=== PATIENT | female | born 1965 | race Caucasian/White ===

== ENCOUNTER 2018-08-02 10:52 | Outpatient (CLI) | payer MEDICARE, MEDICAID, SELFPAY ==
[2018-08-04 16:13] LABS: Lamotrigine 5.8 mcg/mL (2.5 - 15.0)
== END 2018-08-02 11:12 ==
PROVIDERS: Visit Provider Psychiatry & Neurology Neurology
DX: R56.9 Unspecified convulsions (principal); Z51.81 Encounter for therapeutic drug level monitoring; Z79.899 Other long term (current) drug therapy
CPT/HCPCS: 36415; 80175

== ENCOUNTER 2018-08-09 09:17 | Outpatient (REF) | payer MEDICARE, MEDICAID, SELFPAY ==
[2018-08-09 12:57] LABS: HCT 41.8 % (36.0-46.0); HGB 13.5 g/dL (12.0-15.5); Mean Corp. HGB Concentration 32.3 g/dL (32.0-36.0); Mean Corpuscular Hemoglobin 30.9 pg (27.0-33.0); Mean Corpuscular Volume 95.7 fL (80-95); Mean Platelet Volume 10.9 fL (8.0-11.0); Platelet Count 256 x1000/uL (130-400); RBC 4.37 m/cumm (4.00-5.20); RBC Distribution Width 12.7 % (11.7-14.6); White Blood Cell Count 4.92 k/cumm (4.4-10.8)
[2018-08-09 14:04] LABS: ALT 38 U/L (12-78); AST 23 U/L (15-37); Albumin 3.9 g/dL (3.4-5.0); Alkaline Phosphatase 107 U/L (46-116); Anion Gap 10.6 mmol/L (3-11); BUN 12 mg/dL (7-18); Bilirubin, Total 0.3 mg/dL (0.2-1.0); CO2 25.4 mmol/L (21.0-32.0); CREATININE 0.83 mg/dL (0.55-1.02); Chloride 106 mmol/L (98-107); Cholesterol 221 mg/dL (50-200); Glucose 54 mg/dL (70-100); HDL Cholesterol 67 mg/dL (40-60); LDL CHOLESTEROL 134 mg/dL (<100); Potassium 4.1 mmol/L (3.5-5.1); Sodium 142 mmol/L (136-145); Total Protein 7.3 g/dL (6.4-8.2); Triglyceride 72 mg/dL (30-150)
== END 2018-08-09 09:37 ==
LOC: NCHCN 09:17
PROVIDERS: PCP Family Medicine; Visit Provider Family Medicine
DX: G80.9 Cerebral palsy, unspecified (principal); R26.89 Other abnormalities of gait and mobility; I62.00 Nontraumatic subdural hemorrhage, unspecified; Z79.899 Other long term (current) drug therapy; Z13.6 Encounter for screening for cardiovascular disorders
CPT/HCPCS: 80053; 80061; 83721; 85027

== ENCOUNTER 2018-08-16 13:25 | Outpatient (REF) | payer MEDICARE, MEDICAID, SELFPAY ==
--- NOTE | 2018-08-17 11:00 | PAPFT_PTH ---
PATIENT: Blanche Sherman LOC: [facility] U#:[id number] AGE/SX: 52/F ROOM: RE08/16/[address]: Xiomara Walsh : 1965 BED: DIS: 08/16/2018 SPEC #: [id number] RECD: 08/17/18 12:46 STATUS: KRAIG REMario Alberto #: [id number] SHANNAN: 08/17/18 11:[address]: Xiomara Walsh DEPT: [facility] Cytology RECD BY: Marilin Hickey Tissues: 1 - CX/ENDOCX FOR PAP SMEARS Procedures: PAP THIN PREP/UVM Screening HPV DNA PROBE Comments: [id number]
== END 2018-08-16 13:45 ==
LOC: NCHCN 13:25
PROVIDERS: PCP Family Medicine; Visit Provider Family Medicine
DX: Z12.4 Encounter for screening for malignant neoplasm of cervix (principal); Z11.51 Encounter for screening for human papillomavirus (HPV)
CPT/HCPCS: 88142; 87624

== ENCOUNTER 2018-09-24 10:18 | Emergency (ER) | payer MEDICARE, MEDICAID, SELFPAY ==
--- NOTE | 2018-09-24 11:04 | DI.RAD_ITS ---
SYMPTOM/DIAGNOSIS: LATERAL FOOT PAIN AFTER FAL RIGHT FOOT: Four views. There is a nondisplaced fracture involving the proximal metaphysis of the right fifth metatarsal. The fracture does not appear to be intra- articular. There is adjacent soft tissue swelling. No other fracture or dislocation is identified. No radiopaque foreign bodies are seen in the soft tissues. IMPRESSION: Nondisplaced fracture involving the right fifth metatarsal as described.
[2018-09-24] MEDS: Acetaminophen 325 MG TAB 650 MG PO (11:24)
--- NOTE | 2018-09-24 13:04 | DI.VRAD_ITS ---
EXAM: XR Right Foot Complete EXAM DATE/TIME: 09/24/2018 11:05 AM CLINICAL HISTORY: 52 years old, female; Signs and symptoms; Other: Lateral foot pain after fall TECHNIQUE: Imaging protocol: XR Right foot. Views: 3 or more views. COMPARISON: No relevant prior studies available. FINDINGS: Bones/joints: There is a nondisplaced, extra-articular transverse fracture through the base of the fifth metatarsal in alignment.The remaining skeletal structures show no evidence of acute fracture or other acute process. The joint spaces and articular surfaces are intact. Soft tissues: There is lateral soft tissue swelling. IMPRESSION: Nondisplaced fracture through the base of the fifth metatarsal. Dictated and Authenticated by: Kyra Ba MD. Ordering:FLORIAN Quan MD
--- NOTE | 2018-09-24 13:38 | W.ED.GENAD ---
Discharge Plan Disposition Patient Disposition: HOME Condition: Stable Discharge Details Chief Complaint: Orthopedic Clinical Impression: Fracture of fifth metatarsal bone Primary Care Provider: Xiomara Walsh ED Provider: Kadeem Ling Home Meds and New Rx's Prescriptions: Continued clobazam [Onfi] 10 MG tablet 15 mg PO DAILY RF: 0 acetaminophen [Tylenol] 325 MG tablet 650 mg PO PRN RF: 0 ibuprofen 200 MG capsule 200 mg PO PRN RF: 0 citalopram [Celexa] 20 MG tablet 30 mg PO DAILY RF: 0 lamotrigine [Lamictal] 100 MG tablet 100 mg PO DIRECTED RF: 0 topiramate [Topamax] 50 MG tablet 150 mg PO BID RF: 0 prednisone 50 MG tablet 50 mg PO DAILY 5 Days RF: 0 albuterol sulfate [ProAir HFA] 200 PUFF/INH HFA aerosol inhaler 2 puff Inhalation Q4H PRN PRNQty: 1 RF: 0 Discharge Instructions Instructions: Foot Fracture in Adults (ED), RICE Therapy (ED) Additional Instructions: You should continue with minimal weightbearing your right lower extremity and use assistive devices as needed for ambulation. If you do not hear from orthopedic office tomorrow morning please call their office tomorrow afternoon for arrangement of follow-up appointment preferably next 3 to 5 days. Continue to use acetaminophen as needed for discomfort, keep extremity elevated, and you may apply ice. Referrals: Rachid Irving MD [ [facility] STAFF PHYSICIAN] - (Call the office for arrangement of follow-up appointment) Discharge Data Discharge Date/Time-TO BE ENTERED AT DEPARTURE: 09/24/18 14:30 Medical Decision Making Patient reports walking down a incline yesterday and falling with a twisting motion of her right foot. Patient denies any other injury or trauma. Patient denies any ankle pain but mostly states foot discomfort on the lateral aspect. Physical exam shows significant tenderness and ecchymosis to the lateral component of the foot with tenderness to the base of the fifth metatarsal. Ankle has no tenderness and with passive range of motion there is no crepitus or pain elicited. Lower leg is otherwise unremarkable. Concern for fifth metatarsal fracture. Patient prescribed acetaminophen pending results Review of radiological imaging and radiologist dictation shows a nondisplaced fracture through the base of the fifth metatarsal. Given this patient was placed in a short leg splint using posterior and stirrup Ortho-Glass and held in place by Raji wrap. Care management was able to come down and assist given patient's gait instability at baseline with possible home health assistance and/or walker training. Patient's aunt who is also a caregiver states that she does already have a walker at home. Patient was not able to tolerate nonweightbearing. Called and spoke with orthopedist datastage consultant, Dr. Irving. He stated given patient's cerebral palsy and hemiparesis that walking boot would be appropriate and that patient could follow-up in their office. After discussion of diagnosis and plan of care patient and caregiver have no further needs, questions, or concerns and states clear understanding to return to the emergency department for any worsening symptoms. HPI General Mode of arrival: ambulatory. Date/Time Provider Initiated Documentation: 09/24/18 10:41. Information obtained by: patient, family and RN notes reviewed. History of Present Illness 52 year old F presents to the emergency department with the chief complaint of Right foot pain, described as moderate, with intensity rated at 8. Quality is described as sharp, and is localized to the right and lower extremity. Patient started experiencing this day(s) (1) and it has been constant. Patient notes no other symptoms.. Patient did receive the following treatments prior to arrival, none Related Data Home Medications Medication Instructions Recorded Confirmed acetaminophen [Tylenol] 650 mg PO PRN 01/01/14 09/24/18 citalopram [Celexa] 30 mg PO DAILY 01/01/14 09/24/18 ibuprofen 200 mg PO PRN 01/01/14 09/24/18 lamotrigine [Lamictal] 100 mg PO DIRECTED 01/01/14 09/24/18 topiramate [Topamax] 150 mg PO BID 01/01/14 09/24/18 clobazam [Onfi] 15 mg PO DAILY tab-cap 12/23/14 09/24/18 albuterol sulfate [ProAir HFA] 2 puff INHALATION Q4H PRN PRN #1 09/29/17 09/24/18 inh prednisone 50 mg PO DAILY 5 Days tablet 09/29/17 Previous Rx's Medication Instructions Recorded albuterol sulfate [ProAir HFA] 2 puff INHALATION Q4H PRN PRN #1 09/29/17 inh prednisone 50 mg PO DAILY 5 Days tablet 09/29/17 Allergies Allergy/AdvReac Type Severity Reaction Status Date / Time No Known Allergies Allergy Unverified 09/24/18 10:47 General Stated Complaint: Orthopedic SANTOS: 4 Review of Systems Cardiovascular Denies syncope Musculoskeletal Reports as per HPI, Denies numbness and Denies tingling Integumentary/Breasts Denies rash, Denies sores and Denies wounds Neurologic Denies syncope, Denies numbness and Denies tingling PFSH Medical History CP (cerebral palsy) Depression Hemiparesis Surgical History Ligation of fallopian tube VNS placement Social History Smoking/Tobacco Use Status: Former Tobacco Use Alcohol Intake: never Drug use: Never Do you feel safe at home: Yes Do you feel safe in your relationship?: Yes Exam Const General: cooperative and no acute distress Orientation: alert, awake and oriented x3 Resp Effort & Inspection: normal respiratory effort and able to speak in complete sentences Cardio Rate: regular rate Rhythm: regular rhythm Extrem Right lower extremity: ankle Details: normal to inspection and normal ROM; no tenderness, no ecchymosis and no crepitus and foot Details: tenderness Location: of the base of the 5th metatarsal, toes with normal ROM, ecchymosis (lateral foot), vascular exam Details: dorsalis pedis pulse present, posterior tibial pulse present and normal capillary refill and tendon exam Details: active flexion normal and active extension normal; no edema, no abrasion and no laceration Course Respiratory Effort Non-Labored 09/24/18 10:42 Pain Level 8 09/24/18 11:24
--- NOTE | 2018-09-24 13:42 | ED.GENADUL_ITS ---
Discharge Plan Disposition Patient Disposition: HOME Condition: Stable Discharge Details Chief Complaint: Orthopedic Clinical Impression: Fracture of fifth metatarsal bone Primary Care Provider: Xiomara Walsh ED Provider: Kadeem Ling Home Meds and New Rx's Prescriptions: Continued clobazam [Onfi] 10 MG tablet 15 mg PO DAILY RF: 0 acetaminophen [Tylenol] 325 MG tablet 650 mg PO PRN RF: 0 ibuprofen 200 MG capsule 200 mg PO PRN RF: 0 citalopram [Celexa] 20 MG tablet 30 mg PO DAILY RF: 0 lamotrigine [Lamictal] 100 MG tablet 100 mg PO DIRECTED RF: 0 topiramate [Topamax] 50 MG tablet 150 mg PO BID RF: 0 prednisone 50 MG tablet 50 mg PO DAILY 5 Days RF: 0 albuterol sulfate [ProAir HFA] 200 PUFF/INH HFA aerosol inhaler 2 puff Inhalation Q4H PRN PRNQty: 1 RF: 0 Discharge Instructions Instructions: Foot Fracture in Adults (ED), RICE Therapy (ED) Additional Instructions: You should continue with minimal weightbearing your right lower extremity and use assistive devices as needed for ambulation. If you do not hear from orthopedic office tomorrow morning please call their office tomorrow afternoon for arrangement of follow-up appointment preferably next 3 to 5 days. Continue to use acetaminophen as needed for discomfort, keep extremity elevated, and you may apply ice. Referrals: Rachid Irving MD [ [facility] STAFF PHYSICIAN] - (Call the office for arrangement of follow-up appointment) Discharge Data Discharge Date/Time-TO BE ENTERED AT DEPARTURE: 09/24/18 14:30 Medical Decision Making Patient reports walking down a incline yesterday and falling with a twisting motion of her right foot. Patient denies any other injury or trauma. Patient denies any ankle pain but mostly states foot discomfort on the lateral aspect. Physical exam shows significant tenderness and ecchymosis to the lateral component of the foot with tenderness to the base of the fifth metatarsal. Ankle has no tenderness and with passive range of motion there is no crepitus or pain elicited. Lower leg is otherwise unremarkable. Concern for fifth metatarsal fracture. Patient prescribed acetaminophen pending results Review of radiological imaging and radiologist dictation shows a nondisplaced fracture through the base of the fifth metatarsal. Given this patient was placed in a short leg splint using posterior and stirrup Ortho-Glass and held in place by Raji wrap. Care management was able to come down and assist given patient's gait instability at baseline with possible home health assistance and/or walker training. Patient's aunt who is also a caregiver states that she does already have a walker at home. Patient was not able to tolerate nonweightbearing. Called and spoke with orthopedist paper conservator, Dr. Irving. He stated given patient's cerebral palsy and hemiparesis that walking boot would be appropriate and that patient could follow-up in their office. After discussion of diagnosis and plan of care patient and caregiver have no further needs, questions, or concerns and states clear understanding to return to the emergency department for any worsening symptoms. HPI General Mode of arrival: ambulatory . Date/Time Provider Initiated Documentation: 09/24/18 10:41 . Information obtained by: patient, family and RN notes reviewed . History of Present Illness 52 year old F presents to the emergency department with the chief complaint of Right foot pain, described as moderate, with intensity rated at 8. Quality is described as sharp, and is localized to the right and lower extremity. Patient started experiencing this day(s) (1) and it has been constant. Patient notes no other symptoms.. Patient did receive the following treatments prior to arrival, none Related Data Home Medications Medication Instructions Recorded Confirmed acetaminophen [Tylenol] 650 mg PO PRN 01/01/14 09/24/18 citalopram [Celexa] 30 mg PO DAILY 01/01/14 09/24/18 ibuprofen 200 mg PO PRN 01/01/14 09/24/18 lamotrigine [Lamictal] 100 mg PO DIRECTED 01/01/14 09/24/18 topiramate [Topamax] 150 mg PO BID 01/01/14 09/24/18 clobazam [Onfi] 15 mg PO DAILY tab-cap 12/23/14 09/24/18 albuterol sulfate [ProAir HFA] 2 puff INHALATION Q4H PRN PRN #1 09/29/17 09/24/18 inh prednisone 50 mg PO DAILY 5 Days tablet 09/29/17 Previous Rx's Medication Instructions Recorded albuterol sulfate [ProAir HFA] 2 puff INHALATION Q4H PRN PRN #1 09/29/17 inh prednisone 50 mg PO DAILY 5 Days tablet 09/29/17 Allergies Allergy/AdvReac Type Severity Reaction Status Date / Time No Known Allergies Allergy Unverified 09/24/18 10:47 General Stated Complaint: Orthopedic SANTOS: 4 Review of Systems Cardiovascular Denies syncope Musculoskeletal Reports as per HPI, Denies numbness and Denies tingling Integumentary/Breasts Denies rash, Denies sores and Denies wounds Neurologic Denies syncope, Denies numbness and Denies tingling PFSH Medical History CP (cerebral palsy) Depression Hemiparesis Surgical History Ligation of fallopian tube VNS placement Social History Smoking/Tobacco Use Status: Former Tobacco Use Alcohol Intake: never Drug use: Never Do you feel safe at home: Yes Do you feel safe in your relationship?: Yes Exam Const General: cooperative and no acute distress Orientation: alert, awake and oriented x3 Resp Effort & Inspection: normal respiratory effort and able to speak in complete sentences Cardio Rate: regular rate Rhythm: regular rhythm Extrem Right lower extremity: ankle Details: normal to inspection and normal ROM; no tenderness, no ecchymosis and no crepitus and foot Details: tenderness Location: of the base of the 5th metatarsal, toes with normal ROM, ecchymosis (lateral foot), vascular exam Details: dorsalis pedis pulse present, posterior tibial pulse present and normal capillary refill and tendon exam Details: active flexion normal and active extension normal; no edema, no abrasion and no laceration Course Respiratory Effort Non-Labored 09/24/18 10:42 Pain Level 8 09/24/18 11:24
== END 2018-09-24 14:30 | disposition home or self-care (01) ==
PROVIDERS: Emergency Provider Nurse Practitioner Family; PCP Family Medicine
DX: S92.351A Displaced fracture of fifth metatarsal bone, right foot, initial encounter for closed fracture (principal); W01.0XXA Fall on same level from slipping, tripping and stumbling without subsequent striking against object, initial encounter
CPT/HCPCS: 28470; 73630; L4361

== ENCOUNTER → 2018-10-02 09:13 | Outpatient (BNVA) | payer MEDICARE, MEDICAID, SELFPAY | PROVIDERS: PCP Family Medicine; Referring Provider Family Medicine; Visit Provider Orthopaedic Surgery | DX: S92.353A Displaced fracture of fifth metatarsal bone, unspecified foot, initial encounter for closed fracture (principal); G80.9 Cerebral palsy, unspecified; X50.0XXA Overexertion from strenuous movement or load, initial encounter | CPT/HCPCS: 99201; 99213 ==

== ENCOUNTER 2018-10-30 11:27 | Outpatient (CLI) | payer MEDICARE, MEDICAID, SELFPAY ==
--- NOTE | 2018-10-30 09:21 | DI.RAD_ITS ---
SYMPTOM/DIAGNOSIS: F/U RIGHT FOOT: Comparison is made with 24 Sep 2018. The 5th metatarsal fracture shows slightly increased displacement when compared with the previous exam and there is no visible bony bridging. The bones appear mildly osteoporotic from disuse. Chronic foot deformity is also present.
== END 2018-10-30 11:47 ==
PROVIDERS: PCP Family Medicine; Referring Provider Family Medicine; Visit Provider Orthopaedic Surgery
DX: S92.351A Displaced fracture of fifth metatarsal bone, right foot, initial encounter for closed fracture (principal); X58.XXXA Exposure to other specified factors, initial encounter
CPT/HCPCS: 99213; 73630

== ENCOUNTER 2018-11-27 10:52 | Outpatient (CLI) | payer MEDICARE, MEDICAID, SELFPAY ==
--- NOTE | 2018-11-27 09:30 | DI.RAD_ITS ---
SYMPTOM/DIAGNOSIS: FRACTURE 5TH METATARSAL BONE RIGHT FOOT: Three views. Comparison 10/30/18 There has been no further increase in healing of the fracture of the right 5th metatarsal. The fracture line is still well visualized laterally, No new fractures or dislocations are seen. Chronic stable deformity of the right foot is noted.
== END 2018-11-27 11:12 ==
PROVIDERS: PCP Family Medicine; Referring Provider Family Medicine; Visit Provider Orthopaedic Surgery
DX: S92.351D Displaced fracture of fifth metatarsal bone, right foot, subsequent encounter for fracture with routine healing (principal); X50.9XXD Other and unspecified overexertion or strenuous movements or postures, subsequent encounter
CPT/HCPCS: 99213; 73630

== ENCOUNTER 2019-03-30 19:53 | Emergency (ER) | payer MEDICARE, MEDICAID, SELFPAY ==
[2019-03-30 19:57] VITALS: BP 118/81; PULSE 93; RESP 16; TEMP 36.7; O2SAT 100
--- NOTE | 2019-03-30 20:17 | ED.GENADUL_ITS ---
Discharge Plan Disposition Patient Disposition: HOME Condition: Improving Discharge Details Chief Complaint: Trauma Clinical Impression: Multiple contusions Primary Care Provider: Xiomara Walsh ED Provider: Rachid Allen Home Meds and New Rx's Prescriptions: Continued cholecalciferol (vitamin D3) 1,000 unit capsule 1,000 unit PO BID RF: 0 clobazam [Onfi] 10 MG tablet 15 mg PO DAILY RF: 0 acetaminophen [Tylenol] 325 MG tablet 650 mg PO PRN RF: 0 ibuprofen 200 MG capsule 200 mg PO PRN RF: 0 citalopram [Celexa] 20 MG tablet 30 mg PO DAILY RF: 0 topiramate [Topamax] 50 MG tablet 150 mg PO BID RF: 0 lamotrigine [Lamictal] 100 mg tablet 150 mg PO BID RF: 0 albuterol sulfate [ProAir HFA] 200 PUFF/INH HFA aerosol inhaler 2 puff Inhalation Q4H PRN PRNQty: 1 RF: 0 Discharge Instructions Instructions: Contusion in Adults (ED) Additional Instructions: You will likely have increased muscular soreness tomorrow and may develop some mild bruising. Tylenol and/or ibuprofen as needed for pain. Continue your regular medications. Return for any acute concern. Stand Alone Forms: Work Release Medical Decision Making 53-year-old female with cerebral palsy, pre-standing partial right hemiparesis who is caring a box this afternoon when her feet were tangled and she fell on her left side. No loss of consciousness. Denies head/neck/abdominal pain. She has mild left-sided rib and back pain is worse with movement. Mild left foot pain. Had transient left elbow pain that is now improved. Vital signs are unremarkable. Patient given ibuprofen and referred for x-ray of ribs, pelvis, left foot. Radiographs: Left foot no acute finding; chest x-ray with left ribs note of neuro stimulatory device, intact leads, no evidence of rib fracture or acute finding; pelvis XRay no acute fracture. Patient stable and improved, will be discharged with caregivers. HPI General Mode of arrival: ambulatory . Date/Time Provider Initiated Documentation: 03/30/19 19:55 . Limitations to Documentation: no limitations . Information obtained by: patient . History of Present Illness 53 year old F presents to the emergency department with the chief complaint of L pain after ground level fall, described as mild, Quality is described as dull, and is localized to the chest, pelvis, left and lower extremity. Patient reports no radiation. Patient started experiencing this minute(s) and it has been constant. No relieving factors improve symptom(s), No exacerbating factors reported . Patient notes denies headaches, seizure and syncope. Patient did receive the following treatments prior to arrival, other (Tylenol) Related Data Home Medications Medication Instructions Recorded Confirmed acetaminophen [Tylenol] 650 mg PO PRN 01/01/14 03/30/19 citalopram [Celexa] 30 mg PO DAILY 01/01/14 03/30/19 ibuprofen 200 mg PO PRN 01/01/14 03/30/19 topiramate [Topamax] 150 mg PO BID 01/01/14 03/30/19 clobazam [Onfi] 15 mg PO DAILY tab-cap 12/23/14 03/30/19 albuterol sulfate [ProAir HFA] 2 puff INHALATION Q4H PRN PRN #1 09/29/17 03/30/19 inh cholecalciferol (vitamin D3) 1,000 1,000 unit PO BID cap 10/02/18 03/30/19 unit capsule lamotrigine 100 mg tablet 150 mg PO BID tab 10/02/18 03/30/19 Previous Rx's Medication Instructions Recorded albuterol sulfate [ProAir HFA] 2 puff INHALATION Q4H PRN PRN #1 09/29/17 inh Allergies Allergy/AdvReac Type Severity Reaction Status Date / Time No Known Allergies Allergy Unverified 03/30/19 20:05 General Stated Complaint: Trauma SANTOS: 4 Review of Systems Narrative: No loss of consciousness. Able to ambulate. 6 systems reviewed and otherwise negative [facility] Medical History CP (cerebral palsy) Depression Hemiparesis Surgical History Ligation of fallopian tube VNS placement Social History Smoking/Tobacco Use Status: Former Tobacco Use Alcohol Intake: never Drug use: Never Substance use type: does not use Do you feel safe at home: Yes Do you feel safe in your relationship?: Yes Exam Narrative Exam Narrative: GEN: awake, alert, oriented 3. Pleasant, well groomed, interactive. HEAD: Normocephalic, atraumatic ENT: Mucous membranes moist, oropharynx unremarkable, External ear exam unremarkable EYES: PERRL, EOMI NECK: Full ROM, no GUERITA, no menigismus CHEST/RESP: No significant tenderness appreciated., clear to auscultation bilateral, no wheeze/rhonchi/rales CARDIOVASCULAR: RRR, no murmur, rub darius. 2+ Rad pulse bilateral ABDOMEN: Soft, nontender, no mass. +Bowel sounds EXT: Full ROM, no edema, no rash. Minimal tenderness left foot. Neuro: Grossly normal neurologic exam, conversant, interactive. Right-sided muscle wasting and mild weakness but able to move all 4 extremities against gravity Psych: Speech fluent, thoughts congruent, affect normal Course Vital Signs Vital signs: Vital Signs Temperature 36.7 C 03/30/19 19:57 Pulse 93 H 03/30/19 19:57 Respiratory Rate 16 03/30/19 19:57 Blood Pressure 118/81 03/30/19 19:57 Pulse Oximetry 100 03/30/19 19:57 Temperature 36.7 C 03/30/19 19:57 Temperature Source Skin 03/30/19 19:57 Pulse 93 H 03/30/19 19:57 Respiratory Rate 16 03/30/19 19:57 Respiratory Effort 03/30/19 20:07 Blood Pressure 118/81 03/30/19 19:57 Pulse Oximetry 100 03/30/19 19:57 Pain Level 5 03/30/19 19:57
--- NOTE | 2019-03-30 20:26 | DI.RAD_ITS ---
EXAM: XR FOOT LT COMPLETE INDICATION: pain after fall. COMPARISON: XR foot RT complete from 11/27/2018 TECHNIQUE: 2D digital imaging was performed. FINDINGS: No acute fracture or dislocation is present. The soft tissues are unremarkable. There are hammertoe deformities of the 2nd through 5th toes. IMPRESSION: No acute abnormality.
--- NOTE | 2019-03-30 20:32 | DI.RAD_ITS ---
EXAM: XR RIBS LT W PA LAT CHEST INDICATION: L pain after fall. COMPARISON: CHEST 2 VIEWS PA,LAT from 09/29/2017 TECHNIQUE: 2D digital imaging was performed. FINDINGS: The heart size and pulmonary vasculature are within normal limits. The lungs are clear. No effusion s or pneumothoraces are present. The nerve stimulator device is unchanged. No rib fracture is ident ified. IMPRESSION: No acute abnormality.
--- NOTE | 2019-03-30 20:39 | DI.RAD_ITS ---
EXAM: XR PELVIS AP INDICATION: L pain after fall. COMPARISON: No exams were available for comparison TECHNIQUE: 2D digital imaging was performed. FINDINGS: No acute fracture or dislocation is present. The soft tissues are unremarkable. IMPRESSION: No acute abnormality.
[2019-03-30] MEDS: Ibuprofen 800 MG TAB PO (20:48)
--- NOTE | 2019-03-30 20:57 | DI.VRAD_ITS ---
PROCEDURE INFORMATION: Exam: XR Left Foot Complete Exam date and time: 03/30/2019 8:28 PM Age: 53 years old Clinical history: Injury or trauma; Fall; Initial encounter; Sprain or strain; Foot; Left TECHNIQUE: Imaging protocol: XR Left foot. Views: 3 or more views. COMPARISON: CR LEFT ANKLE COMPLETE 12/18/2016 10:27 PM FINDINGS: Bones/joints: No fracture. Hammertoe deformities second through fifth digits. Soft tissues: Normal. IMPRESSION: No acute findings. Dictated and Authenticated by: Frankie Rainey MD. Ordering:SHANA Rashid MD
--- NOTE | 2019-03-30 21:06 | DI.VRAD_ITS ---
PROCEDURE INFORMATION: Exam: XR Pelvis Exam date and time: 03/30/2019 8:44 PM Age: 53 years old Clinical history: Pelvic pain TECHNIQUE: Imaging protocol: XR pelvis. Views: 1 or 2 view. COMPARISON: US PELVIS ULTRASOUND *(P) 12/31/2013 5:44 PM FINDINGS: Bones/joints: Unremarkable. No acute fracture. Soft tissues: Unremarkable. IMPRESSION: No acute findings. Dictated and Authenticated by: Frankie Rainey MD. Ordering:SHANA Rashid MD
--- NOTE | 2019-03-30 21:10 | DI.VRAD_ITS ---
PROCEDURE INFORMATION: Exam: XR Left Ribs Exam date and time: 03/30/2019 8:45 PM Age: 53 years old Clinical history: Injury or trauma; Fall; Initial encounter; Sprain or strain; Rib area, left side TECHNIQUE: Imaging protocol: XR Left ribs. Views: 2 views. COMPARISON: No relevant prior studies available. FINDINGS: Tubes, catheters and devices: Neurostimulatory device with generator in upper left chest and lead extending cephalad from it into neck. Bones/joints: Normal. Soft tissues: Normal. IMPRESSION: No left rib fracture. PROCEDURE INFORMATION: Exam: XR Chest, 2 Views Exam date and time: 03/30/2019 8:45 PM Age: 53 years old Clinical history: Injury or trauma; Fall; Initial encounter; Sprain or strain; Rib area, left side TECHNIQUE: Imaging protocol: XR of the chest Views: 2 views. COMPARISON: No relevant prior studies available. FINDINGS: Lungs: Unremarkable. No consolidation. Pleural space: Unremarkable. No pleural effusion. No pneumothorax. Heart/Mediastinum: Unremarkable. No cardiomegaly. Bones/joints: Unremarkable. IMPRESSION: No acute findings. Dictated and Authenticated by: Frankie Rainey MD. Ordering:SHANA Rashid MD
[2019-03-30 21:30] VITALS: BP 121/74; PULSE 76; RESP 16; O2SAT 97
== END 2019-03-30 21:30 | disposition home or self-care (01) ==
PROVIDERS: Emergency Provider Emergency Medicine; PCP Family Medicine
DX: M25.522 Pain in left elbow (principal); M79.672 Pain in left foot; M54.9 Dorsalgia, unspecified; R07.81 Pleurodynia; W10.8XXA Fall (on) (from) other stairs and steps, initial encounter
CPT/HCPCS: 99284; 71046; 71100; 72170; 73630; 99282

== ENCOUNTER → 2019-05-29 10:13 | Outpatient (BNVA) | payer MEDICARE, MEDICAID, SELFPAY | PROVIDERS: PCP Family Medicine; Referring Provider Family Medicine; Visit Provider Psychiatry & Neurology Neurology | DX: G40.119 Localization-related (focal) (partial) symptomatic epilepsy and epileptic syndromes with simple partial seizures, intractable, without status epilepticus (principal); G80.8 Other cerebral palsy; F81.9 Developmental disorder of scholastic skills, unspecified; Q04.6 Congenital cerebral cysts; Z45.42 Encounter for adjustment and management of neurostimulator | CPT/HCPCS: 95970; 99204; 99215 ==

== ENCOUNTER 2019-08-30 08:45 | Emergency (ER) | payer OTHER, MEDICARE, MEDICAID, SELFPAY ==
[2019-08-30 08:44] VITALS: BP 113/75; PULSE 82; RESP 21; TEMP 36.5; O2SAT 98
--- NOTE | 2019-08-30 08:52 | ED.GENADUL_ITS ---
Discharge Plan Disposition Patient Disposition: HOME Condition: Stable Discharge Details Chief Complaint: Orthopedic Clinical Impression: Fall, Contusion of rib on left side, Contusion of left hip Primary Care Provider: Xiomara Walsh ED Provider: Judy Palacio Home Meds and New Rx's Prescriptions: Continued cholecalciferol (vitamin D3) 1,000 unit capsule 1,000 unit PO BID RF: 0 clobazam [Onfi] 10 MG tablet 15 mg PO DAILY RF: 0 citalopram 40 mg tablet 40 mg PO DAILY RF: 0 acetaminophen [Tylenol] 325 MG tablet 650 mg PO PRN RF: 0 ibuprofen 200 MG capsule 200 mg PO PRN RF: 0 topiramate [Topamax] 50 MG tablet 150 mg PO DAILY RF: 0 lamotrigine 200 mg Tablet 200 mg PO DAILY RF: 0 lamotrigine 150 mg tablet 150 mg PO HS RF: 0 Discharge Instructions Instructions: Contusion in Adults (ED), Fall Prevention (ED), Rib Contusion (ED) Additional Instructions: Apply ice to the affected area several times daily for 20 minutes at a time. Alternate tylenol and motrin as needed and directed for pain. You can also try [id number] Lidoderm patches to help with pain. Follow-up with your primary care doctor in 1 week. Return to the emergency department with any worsening or new concerning symptoms. Discharge Data Discharge Physician: Judy Palacio Medical Decision Making [id number] -- 53-year-old female with a history of cerebral palsy, developmental delay, seizures presents with left rib, left abdomen/side, left hip and left lower back pain status post mechanical fall. She is acting at mental status baseline. She has tenderness to palpation left rib left upper and lower quadrant, left hip. No evidence of trauma. No focal deficits. Will give a dose of Tylenol and refer for CT imaging. 1155 --labs and imaging reviewed and unremarkable. Case discussed with patient social worker palliative care [place] who will take patient home. Patient was given Tylenol and Lidoderm patch with some relief. She was advised on the importance of ice and pain control. Usual and customary return precautions given prior to discharge. Medical Records Medical records reviewed: Yes I reviewed the patient's medical records. Imaging Data Radiologic Study: Radiologist's impression: CT HEAD CERVICAL SPINE WO CLINICAL HISTORY: s/p fall, r/o acute head inj/cervical fx TECHNIQUE: COMPARISON: HEAD WITHOUT CONTRAST from 09/29/2017 FINDINGS: Noncontrast cranial CT was performed. Prior left craniotomy noted, no evidence of acute calvarial fracture. Paranasal sinuses and mastoid air cells appear clear. Left encephalomalacia again noted, no change from 09/29/2017. No evidence of subdural hematoma at this time, previously noted subdural hematoma has resolved. No additional new findings. Scanning of the cervical spine was performed utilizing multi slice imaging. The tracheolaryngeal structures appear intact. There are mild degenerative changes of the cervical spine. There is no evidence of acute fracture or facet dislocation. No cervical mass or adenopathy seen. IMPRESSION: No evidence of acute intracranial injury. No evidence of acute cervical spine injury. CT CHEST/ABD/PEL W TECHNIQUE: CT examination of the chest, abdomen, and pelvis was performed with bolus infusion of 100 cc of Omnipaque 350. COMPARISON: No exams were available for comparison FINDINGS: Note is made of a subcutaneous stimulator of the left upper thorax anteriorly. There is no evidence of a thoracic vascular injury. The lungs are clear. No pneumothorax or pleural effusion. No mediastinal hematoma. No adenopathy in the chest. Tracheobronchial tree appears intact. The liver, spleen, and pancreas appear normal. Gallbladder and bile ducts are normal. Adrenals and kidneys are unremarkable. No evidence of urinary tract injury or obstruction. No abdominal or pelvic vascular injury seen. No abdominal or pelvic adenopathy. No significant abdominal wall hernia or hematoma. No evidence of bowel injury. No bony injury seen on scanning of the chest, abdomen, and pelvis. IMPRESSION: No evidence of acute injury of the chest, abdomen, or pelvis. Lab Data Lab results reviewed: Yes I reviewed the patient's lab results. Labs: Laboratory Tests Range/Units 08/30/19 08/30/19 09:58 09:58 WBC (4.4-10.8) k/cumm 6.56 RBC (4.00-5.20) m/cumm 4.38 Hgb (12.0-15.5) g/dL 13.3 Hct (36.0-46.0) % 40.8 MCV (80-95) fL 93.2 MCH (27.0-33.0) pg 30.4 MCHC (32.0-36.0) g/dL 32.6 RDW (11.7-14.6) % 12.6 Plt Count (130-400) x1000/uL 182 MPV (8.0-11.0) fL 10.8 Immature Gran % % 0.8 Neutrophils % 73.1 Lymphocytes % 18.8 Monocytes % 4.4 Eosinophils % 2.7 Basophils % 0.2 Absolute Neutrophils (1.2-6.7) k/cumm 4.80 Absolute Lymphocytes (1.2-3.4) k/cumm 1.23 Absolute Monocytes (0.11-0.7) k/cumm 0.29 Absolute Eosinophils (0.0-0.7) k/cumm 0.18 Absolute Basophils (0.0-0.2) k/cumm 0.01 Sodium (136-145) mmol/L 140 Potassium (3.5-5.1) mmol/L 4.1 Chloride (98-107) mmol/L 105 Carbon Dioxide (21.0-32.0) mmol/L 27.5 Anion Gap (3-11) mmol/L 7.5 BUN (7-18) mg/dL 10 Creatinine (0.55-1.02) mg/dL 0.86 Estimated GFR/1.73 m2 (mL/min/1.73m2) >= 60.00 Glucose (74-106) mg/dL 93 Calcium (8.5-10.1) mg/dL 8.8 Total Bilirubin (0.2-1.0) mg/dL 0.3 AST (15-37) U/L 23 ALT (14-59) U/L 30 Alkaline Phosphatase (46-116) U/L 96 Total Protein (6.4-8.2) g/dL 7.2 Albumin (3.4-5.0) g/dL 3.7 Lipase (73-393) U/L 261 HPI General Mode of arrival: EMS . Date/Time Provider Initiated Documentation: 08/30/19 09:10 . Limitations to Documentation: no limitations . Information obtained by: patient . HPI Narrative: Patient is a 53-year-old female with a history of cerebral palsy, seizures, cognitive developmental delay who presents status post fall. Patient states he was walking when she tripped over a mop and hit her left side, hip and lower back on the floor. She is also complaining of pain in the left side of the abdomen. She states she is unsure of head injury but she does not think she hit her head. She denies any LOC or vomiting. She states she does not usually use assistance with walking. She has not taken any medication for pain. Related Data Home Medications Medication Instructions Recorded Confirmed acetaminophen [Tylenol] 650 mg PO PRN 01/01/14 08/30/19 ibuprofen 200 mg PO PRN 01/01/14 08/30/19 topiramate [Topamax] 150 mg PO DAILY 01/01/14 08/30/19 clobazam [Onfi] 15 mg PO DAILY tab-cap 12/23/14 08/30/19 cholecalciferol (vitamin D3) 25 1,000 unit PO BID cap 10/02/18 08/30/19 mcg (1,000 unit) capsule citalopram 40 mg tablet 40 mg PO DAILY 04/17/19 08/30/19 lamotrigine 150 mg PO HS 08/30/19 08/30/19 lamotrigine 200 mg PO DAILY 08/30/19 08/30/19 Allergies Allergy/AdvReac Type Severity Reaction Status Date / Time meperidine [From Demerol] AdvReac Mild Unverified 08/30/19 09:25 General SANTOS: 4 Review of Systems All systems reviewed & are unremarkable except as noted in HPI and below Constitutional Constitutional: Reports as per HPI, Denies chills and Denies fever(s) Eyes Eyes: Denies blurry vision ENT Ears, Nose, Mouth, and Throat: Denies dizziness, Denies sore throat and Denies throat swelling Cardiovascular Cardiovascular: Denies chest pain and Denies dyspnea Respiratory Respiratory: Denies cough and Denies dyspnea Gastrointestinal Gastrointestinal: Reports abdominal pain, Denies diarrhea and Denies vomiting Genitourinary Genitourinary: Denies hematuria and Denies dysuria Musculoskeletal Musculoskeletal: Denies back pain, Denies numbness and Reports other (L rib and hip pain) Integumentary/Breasts Skin/Breast: Denies lesions and Denies rash Neurologic Neurologic: Denies dizziness, Denies localized weakness and Denies numbness Allergic/Immunologic Allergic/Immunologic: Denies throat swelling COUNTS INCLUDE 234 BEDS AT THE [facility] Social History Smoking/Tobacco Use Status: Former Tobacco Use Alcohol Intake: never Drug use: Never Substance use type: does not use Household members: family current occupation: Disabled Do you feel safe at home: Yes Do you feel safe in your relationship?: Yes Additional Social history: Lives with caregiver and Aunt Pretty Hagan. Guardian is Aparna Delgado. Exam Const General: cooperative, healthy appearing and no acute distress Orientation: alert, awake and oriented x3 HENMT Head: normal to inspection Ears: hearing grossly normal bilaterally, external ears normal and TM's normal bilaterally General nose exam: external nose normal Face and sinus: normal facial exam Mouth: oral mucosae normal Teeth and gingiva: dentition normal Throat: posterior oropharynx normal Eyes General: appearance normal, both eyes and all related structures Eyelids: eyelids normal Pupils: PERRL EOM: EOM intact bilaterally Neck Neck: normal visual inspection Lymphatic: no lymphadenopathy noted Chest Chest: normal inspection of the chest and tenderness Chest/axillae images: 1. Tenderness to palpation L lateral chest. No crepitus, ecchymoses, erythema, abrasions, or rash. Resp Effort & Inspection: normal respiratory effort and able to speak in complete sen tences Auscultation: clear to auscultation bilaterally Cardio Rate: regular rate Rhythm: regular rhythm GI Inspection: normal to inspection and no abdominal wall ecchymosis Palpation: soft, not firm, no guarding, no hepatosplenomegaly, no masses and tender in the LLQ and in the LUQ Auscultation: hypoactive bowel sounds Back/Spine/Pelvis Cervical Spine: No cervical spinal tenderness Thoracic/Lumbar Spine: thoracic and lumbar spine normal to inspection, No thoracic spinal tenderness and No lumbar spinal tenderness Other: Tenderness to palpation of left buttock with minimal ecchymosis, may be considered old. Skin General skin exam: no rashes or lesions noted Neuro General: patient alert and patient awake Cranial Nerves: CN's II-XI intact bilaterally Cognition: normal cognition Speech: abnormal speech slurred (chronic, due to cerebral palsy) Gait: normal gait Motor: muscle tone normal throughout and strength 5/5 throughout Sensory Exam: no sensory deficits noted Other: chronic R sided hemiparesis Extrem Left lower extremity: hip/thigh Details: tenderness Location: of the hip Location: laterally Other: R arm contracted, flexed at R elbow chronically Psych Appearance: grossly normal Mental Status: mental status grossly normal Speech and Movement: speech and movement normal Affect: normal affect Thought Process: normal
--- NOTE | 2019-08-30 09:00 | DI.CT_ITS ---
EXAM: CT HEAD CERVICAL SPINE WO CLINICAL HISTORY: s/p fall, r/o acute head inj/cervical fx TECHNIQUE: COMPARISON: HEAD WITHOUT CONTRAST from 09/29/2017 FINDINGS: Noncontrast cranial CT was performed. Prior left craniotomy noted, no evidence of acute calvarial fr acture. Paranasal sinuses and mastoid air cells appear clear. Left encephalomalacia again noted, no change from 09/29/2017. No evidence of subdural hematoma at th is time, previously noted subdural hematoma has resolved. No additional new findings. Scanning of the cervical spine was performed utilizing multi slice imaging. The tracheolaryngeal str uctures appear intact. There are mild degenerative changes of the cervical spine. There is no evide nce of acute fracture or facet dislocation. No cervical mass or adenopathy seen. IMPRESSION: No evidence of acute intracranial injury. No evidence of acute cervical spine injury.
--- NOTE | 2019-08-30 09:00 | DI.CT_ITS ---
EXAM: CT CHEST/ABD/PEL W TECHNIQUE: CT examination of the chest, abdomen, and pelvis was performed with bolus infusion of 100 cc of Omnipaque 350. COMPARISON: No exams were available for comparison FINDINGS: Note is made of a subcutaneous stimulator of the left upper thorax anteriorly. There is no evidence of a thoracic vascular injury. The lungs are clear. No pneumothorax or pleural e ffusion. No mediastinal hematoma. No adenopathy in the chest. Tracheobronchial tree appears intact. The liver, spleen, and pancreas appear normal. Gallbladder and bile ducts are normal. Adrenals and kidneys are unremarkable. No evidence of urinary tract injury or obstruction. No abdominal or pelvic vascular injury seen. No abdominal or pelvic adenopathy. No significant abdomi nal wall hernia or hematoma. No evidence of bowel injury. No bony injury seen on scanning of the chest, abdomen, and pelvis. IMPRESSION: No evidence of acute injury of the chest, abdomen, or pelvis. RADIATION DOSE DELIVERED: Total DLP DATA REPOSITORY: All CT scans at this facility are submitted to the National Radiology Data Registry (NRDR) Dose Index Registry (DIR) with the [employer] (A[employer]). RADIATION OPTIMIZATION: All CT scans at this facility use at least one of these dose optimization te chniques: automated exposure control; mA and/or kV adjustment per patient size (includes targeted exa ms where dose is matched to clinical indication); or iterative reconstruction.
[2019-08-30] MEDS: Acetaminophen 500 MG TAB 1000 MG PO ×2 (09:59→12:18)
[2019-08-30] MEDS: Normal Saline Flush 10 ML SYR IVP (10:00)
[2019-08-30] MEDS: Omnipaque 350 MG/ML 100 ML BTL IJ (10:20)
[2019-08-30] MEDS: Normal Saline - Diluent 50 ML VIAL IV (10:21)
[2019-08-30 10:26] LABS: Abs Immature Grans 0.05 k/cumm (0.0-0.09); Absolute Basophil Count 0.01 k/cumm (0.0-0.2); Absolute Eosinophil Count 0.18 k/cumm (0.0-0.7); Absolute Lymphocyte Count 1.23 k/cumm (1.2-3.4); Absolute Monocyte Count 0.29 k/cumm (0.11-0.7); Basophils % 0.2; Eosinophils % 2.7; HCT 40.8 % (36.0-46.0); HGB 13.3 g/dL (12.0-15.5); Immature Grans % 0.8 %; Lymphocytes % 18.8; Mean Corp. HGB Concentration 32.6 g/dL (32.0-36.0); Mean Corpuscular Hemoglobin 30.4 pg (27.0-33.0); Mean Corpuscular Volume 93.2 fL (80-95); Mean Platelet Volume 10.8 fL (8.0-11.0); Monocytes % 4.4; Neutrophils % 73.1; Platelet Count 182 x1000/uL (130-400); RBC 4.38 m/cumm (4.00-5.20); RBC Distribution Width 12.6 % (11.7-14.6); White Blood Cell Count 6.56 k/cumm (4.4-10.8)
[2019-08-30 10:29] LABS: ALT 30 U/L (14-59); AST 23 U/L (15-37); Albumin 3.7 g/dL (3.4-5.0); Alkaline Phosphatase 96 U/L (46-116); Anion Gap 7.5 mmol/L (3-11); BUN 10 mg/dL (7-18); Bilirubin, Total 0.3 mg/dL (0.2-1.0); CO2 27.5 mmol/L (21.0-32.0); CREATININE 0.86 mg/dL (0.55-1.02); Calcium 8.8 mg/dL (8.5-10.1); Chloride 105 mmol/L (98-107); Glucose 93 mg/dL (74-106); Lipase 261 U/L (73-393); Potassium 4.1 mmol/L (3.5-5.1); Sodium 140 mmol/L (136-145); Total Protein 7.2 g/dL (6.4-8.2)
[2019-08-30] MEDS: Normal Saline 1,000 ML 1000 ML IV (10:31)
[2019-08-30] MEDS: Lidocaine 5% Patch 1 PATCH TP (11:56)
[2019-08-30 12:20] VITALS: BP 98/50; PULSE 80; RESP 18; TEMP 36.7; O2SAT 97
== END 2019-08-30 12:28 | disposition home or self-care (01) ==
PROVIDERS: Emergency Provider Physician Assistant; PCP Family Medicine
DX: S70.02XA Contusion of left hip, initial encounter (principal); S20.212A Contusion of left front wall of thorax, initial encounter; M54.5 Low back pain; W18.09XA Striking against other object with subsequent fall, initial encounter; G80.8 Other cerebral palsy; F81.9 Developmental disorder of scholastic skills, unspecified
CPT/HCPCS: 36415; 74177; 80053; 83690; 96360; 99285; 70450; 71260; 72125; 85025; 99284; J3490

== ENCOUNTER 2020-02-12 15:25 | Outpatient (REF) | payer MEDICARE, MEDICAID, SELFPAY ==
[2020-02-12 22:14] LABS: Abs Immature Grans 0.01 10^3/uL (0.0-0.06); Absolute Basophil Count 0.01 10^3/uL (0.0-0.2); Absolute Eosinophil Count 0.07 10^3/uL (0.0-0.7); Absolute Lymphocyte Count 1.55 10^3/uL (1.2-3.4); Absolute Monocyte Count 0.33 10^3/uL (0.1-0.8); Absolute Neutrophil Count 3.83 10^3/uL (1.2-6.7); Basophils % 0.2; Eosinophils % 1.2; HCT 38.9 % (36.0-46.0); HGB 12.4 g/dL (11.2-15.7); Immature Grans % 0.2; Lymphocytes % 26.7; MCH 30.4 pg (27.0-33.0); MCHC 31.9 % (32.0-36.0); MCV 95.3 fL (80-95); Monocytes % 5.7; Nucleated RBC 0 %; Platelet Count 230 10^3/uL (130-400); RBC 4.08 10^6/uL (3.93-5.22); RDW 12.3 % (11.7-14.6); RDW-SD 42.7 fL
[2020-02-12 23:04] LABS: ALT 24 U/L (14-59); AST 18 U/L (15-37); Albumin 3.8 g/dL (3.4-5.0); Alkaline Phosphatase 116 U/L (46-116); Anion Gap 9.6 mmol/L (3-11); BUN 11 mg/dL (7-18); Bilirubin, Total 0.2 mg/dL (0.2-1.0); CO2 25.4 mmol/L (21.0-32.0); CREATININE 0.78 mg/dL (0.55-1.02); Calcium 8.5 mg/dL (8.5-10.1); Chloride 107 mmol/L (98-107); ESR 12 mm/hr (0-30); Glucose 86 mg/dL (74-106); Potassium 3.8 mmol/L (3.5-5.1); Sodium 142 mmol/L (136-145); Total Protein 6.8 g/dL (6.4-8.2)
== END 2020-02-12 15:45 ==
LOC: NCHCN 15:25
PROVIDERS: PCP Family Medicine; Visit Provider Family Medicine
DX: R63.4 Abnormal weight loss (principal)
CPT/HCPCS: 80053; 85652; 83735; 84443; 85025

== ENCOUNTER → 2020-05-27 09:11 | Outpatient (BNVA) | payer MEDICARE, MEDICAID, SELFPAY | PROVIDERS: PCP Family Medicine; Referring Provider Family Medicine; Visit Provider Psychiatry & Neurology Neurology | DX: F81.9 Developmental disorder of scholastic skills, unspecified (principal); G47.10 Hypersomnia, unspecified; Q04.6 Congenital cerebral cysts; G80.8 Other cerebral palsy; G40.119 Localization-related (focal) (partial) symptomatic epilepsy and epileptic syndromes with simple partial seizures, intractable, without status epilepticus | CPT/HCPCS: 95970; 95971; 99214 ==

== ENCOUNTER 2020-06-09 01:08 | Outpatient (CLI) | payer MEDICARE, MEDICAID, SELFPAY ==
--- NOTE | 2020-06-09 13:55 | DI.MAMMO_ITS ---
EXAM: MG MAMMO SCREENING 60 MIN DUR CLINICAL HISTORY: SCREENING, Z12.31 TECHNIQUE: Bilateral full field digital CC and MLO mammographic images were obtained with 3D tomosyn thesis and utilizing computer aided detection (CAD). COMPARISON: Available for comparison. FINDINGS: Masses/Architectural Distortion: None seen. Microcalcifications: No suspicious pleomorphic-type are seen. Skin Thickening/Nipple Retraction: None. IMPRESSION: 1. No significant interval change with no specific features of malignancy noted. 2. Unless there is more urgent need, screening mammography is recommended, as per [employer] guidelines. BI-RADS Category 1 - Negative Breast Density - Category C - Heterogeneously dense Breast density category C or D implies that the patient has dense breast tissue. Dense breast tissue is very common and is not abnormal but dense breast tissue can make it harder to find cancer on a ma mmogram. Also, dense breast tissue may increase their breast cancer risk. This information about the result of the mammogram report was provided to the patient to raise their awareness. Use this report when you speak with the patient about their risks for breast cancer, which includes their family hist ory. At that time, you may recommend for more screening tests (Ultrasound or MRI) as they might be us eful based on their risk. A negative radiographic report should not delay biopsy if a dominant or clinically suspicious mass is present. Up to ten percent of cancers are not identified on mammography. A negative report may reinforce clinical impression. Adenosis and dense breasts may obscure an underlying neoplasm. False positive reports average 6 to 10%. Patient will receive a letter notifying them of these results.
== END 2020-06-09 01:09 ==
LOC: DI 01:08
PROVIDERS: PCP Family Medicine; Visit Provider Family Medicine
DX: Z12.31 Encounter for screening mammogram for malignant neoplasm of breast (principal)
CPT/HCPCS: 77063; 77067

== ENCOUNTER 2020-12-13 14:09 | Emergency (ER) | payer MEDICARE, MEDICAID, SELFPAY ==
[2020-12-13 14:26] VITALS: BP 115/79; PULSE 77; RESP 16; O2SAT 100
--- NOTE | 2020-12-13 14:56 | W.ED.GENAD ---
Discharge Plan Disposition Patient Disposition: HOME Condition: Stable Discharge Details Clinical Impression: Right ankle sprain Primary Care Provider: Xiomara Walsh ED Provider: Keyur Ribera Home Meds and New Rx's Prescriptions: Continued cholecalciferol (vitamin D3) 1,000 unit capsule 1,000 unit PO BID RF: 0 lamotrigine 150 mg tablet 150 mg PO BID Qty: 180 RF: 3 citalopram 40 mg tablet 40 mg PO DAILY RF: 0 topiramate [Topamax] 50 mg tablet 150 mg PO BID Qty: 540 RF: 3 clobazam [Onfi] 10 mg tablet 15 mg PO DAILY Qty: 90 RF: 3 acetaminophen [Tylenol] 325 MG tablet 650 mg PO PRN RF: 0 ibuprofen 200 MG capsule 200 mg PO PRN RF: 0 Discharge Instructions Instructions: Ankle Sprain (ED) Additional Instructions: if pain continues in a week see your primary care provider if you feel more ill, have severe worsening pain or new pain such as abdomen pain return to the emergency department Medical Decision Making 55 yo female states she was walking this morning outside when she tripped and twisted her right ankle, denies hitting head or loc. She states the ankle feels better but still has pain over lateral malleolus. She denies headache, neck pain, chest pain, abdomen pain or back pain. HAs tenderness over lateral malleolus with mild swelling, full range of motion of the ankle with intact pulses and sensation. Suspect sprain but will xray to evaluate for fracture xray negative on my read, she is walking and bearing weight so do not feel ct indicated. Advised to f/u with her pcp and return precautions given Differential Diagnosis Differential Diagnosis: sprain, fracture Imaging Data Radiologic Study: Attestation: I personally reviewed and interpreted this imaging study as follows: Imaging: X-Ray My impression: no acute findings HPI General Mode of arrival: wheelchair. Date/Time Provider Initiated Documentation: 12/13/20 14:55. Limitations to Documentation: no limitations. Information obtained by: patient. History of Present Illness 55 year old F presents to the emergency department with the chief complaint of right ankle pain, described as moderate, Quality is described as aching, and is localized to the right and lower extremity. Patient reports no radiation. Patient started experiencing this hour(s) (7) and it has been constant. Rest improves symptom(s), Movement worsens symptoms . Patient notes no other symptoms.. Patient did receive the following treatments prior to arrival, NSAID Related Data Home Medications Medication Instructions Recorded Confirmed acetaminophen [Tylenol] 650 mg PO PRN 01/01/14 05/27/20 ibuprofen 200 mg PO PRN 01/01/14 05/27/20 cholecalciferol (vitamin D3) 25 1,000 unit PO BID cap 10/02/18 05/27/20 mcg (1,000 unit) capsule citalopram 40 mg tablet 40 mg PO DAILY 04/17/19 05/27/20 lamotrigine 150 mg tablet 150 mg PO BID #180 tab 05/27/20 05/27/20 topiramate 50 mg tablet 150 mg PO BID #540 tab 10/12/20 clobazam 10 mg tablet 15 mg PO DAILY #90 tab-cap 12/09/20 Previous Rx's Medication Instructions Recorded lamotrigine 150 mg tablet 150 mg PO BID #180 tab 05/27/20 topiramate 50 mg tablet 150 mg PO BID #540 tab 10/12/20 clobazam 10 mg tablet 15 mg PO DAILY #90 tab-cap 12/09/20 Allergies Allergy/AdvReac Type Severity Reaction Status Date / Time meperidine [From Demerol] AdvReac Mild Unverified 05/27/20 09:23 General Stated Complaint: Orthopedic SANTOS: 4 Review of Systems All systems reviewed & are unremarkable except as noted in HPI and below Constitutional Constitutional: Denies chills, Denies fever(s) and Denies weakness Cardiovascular Cardiovascular: Denies chest pain and Denies dyspnea Respiratory Respiratory: Denies cough and Denies dyspnea Gastrointestinal Gastrointestinal: Denies abdominal pain, Denies nausea and Denies vomiting Neurologic Neurologic: Denies weakness Psychiatric Psychiatric: Denies depression [facility] Medical History (Updated 12/13/20 @ 15:52 by Keyur Ribera MD) Cerebral palsy, hemiplegic right hemiplegic Cognitive developmental delay Depression Focal epilepsy with impairment of consciousness, intractable Fracture of base of fifth metatarsal bone of right foot (09/23/18) Schizencephaly left hemisphere, closed lip Sprain of calcaneofibular ligament of left ankle, subsequent encounter Traumatic subdural hemorrhage s/p fall down stairs from seizure 09/21/17 Surgical History S/P craniotomy exploratory as an S/P placement of VNS (vagus nerve stimulation) device 04/15/13 [place] [facility] [place]al [place] Family History Other Adopted Social History (Updated 05/27/20 @ 09:28 by Shital Cordero LPN) Smoking/Tobacco Use Status: Former Tobacco Use Smoking risk assessment performed?: Yes Alcohol Intake: never Drug use: Never Substance use type: does not use Household members: family Housing: house current occupation: Disabled Pets and animals: Yes Pets and animals: dog(s) What type of physical activity do you participate in: walking Seatbelt use: always Do you feel safe at home: Yes Do you feel safe in your relationship?: Yes Additional Social history: Lives with caregiver and Aunt Pretty Hagna. Guardian is Aparna Delgado. Exam Const General: no acute distress Orientation: alert HENMT Head: normal to inspection Ears: external ears normal General nose exam: external nose normal Mouth: moist mucous membranes Eyes General: appearance normal, both eyes and all related structures Neck Neck: normal visual inspection Resp Effort & Inspection: normal respiratory effort and able to speak in complete sentences Cardio Rate: regular rate Skin General skin exam: no rashes or lesions noted Neuro General: patient alert and patient oriented x3 Extrem General: normal to inspection Psych Mental Status: mental status grossly normal Course Vital Signs Vital signs: Vital Signs Pulse 77 12/13/20 14:26 Respiratory Rate 16 12/13/20 14:26 Blood Pressure 115/79 12/13/20 14:26 Pulse Oximetry 100 12/13/20 14:26 Pulse 77 12/13/20 14:26 Respiratory Rate 16 12/13/20 14:26 Blood Pressure 115/79 12/13/20 14:26 Blood Pressure Position Sitting 12/13/20 14:26 Pulse Oximetry 100 12/13/20 14:26 Oxygen Delivery Method Room Air 12/13/20 14:26 Oxygen Flow Rate 0 12/13/20 14:26
--- NOTE | 2020-12-13 15:24 | DI.RAD_ITS ---
Exam(s) XR ANKLE RT COMPLETE EXAM: XR ANKLE RT COMPLETE CLINICAL HISTORY: pain s/p fall. TECHNIQUE: 2D digital imaging was performed. COMPARISON: CR LEFT ANKLE COMPLETE from 12/18/2016 FINDINGS: No evidence of acute fracture or widening of the mortise.. Talar dome appears unremarkable. No osse ous tarsal coalition evident. IMPRESSION: No fracture. DATA REPOSITORY: RADIATION DOSE DELIVERED:
[2020-12-13] MEDS: Ibuprofen 600 MG TAB PO (16:07)
--- NOTE | 2020-12-13 16:09 | DI.VRAD_ITS ---
PROCEDURE INFORMATION: Exam: XR Right Ankle Exam date and time: 12/13/2020 2:56 PM Age: 55 years old Clinical indication: Right; Patient HX: Pain, S/P fall twisting ankle. TECHNIQUE: Imaging protocol: XR Right ankle. Views: 3 or more views. COMPARISON: CR XR foot RT complete 11/27/2018 9:33 AM FINDINGS: Bones/joints: Bony structures are mildly osteopenic. There is no acute fracture or dislocation. The mortise joint is intact. There has been healing of the 5th metatarsal fracture seen on the patient's prior examination of 2018. Soft tissues: There is mild soft tissue swelling IMPRESSION: No acute fracture Dictated and Authenticated by: Angelina Nunes MD. Ordering:KATIE Baer MD
== END 2020-12-13 16:16 | disposition home or self-care (01) ==
PROVIDERS: Emergency Provider Emergency Medicine; PCP Family Medicine
DX: S93.491A Sprain of other ligament of right ankle, initial encounter (principal); X50.9XXA Other and unspecified overexertion or strenuous movements or postures, initial encounter
CPT/HCPCS: 99283; 73610

== ENCOUNTER → 2021-05-27 10:48 | Outpatient (BNVA) | payer MEDICARE, MEDICAID, SELFPAY | PROVIDERS: PCP Family Medicine; Referring Provider Family Medicine; Visit Provider Psychiatry & Neurology Neurology | DX: G47.10 Hypersomnia, unspecified (principal); F81.9 Developmental disorder of scholastic skills, unspecified; G40.119 Localization-related (focal) (partial) symptomatic epilepsy and epileptic syndromes with simple partial seizures, intractable, without status epilepticus; G80.8 Other cerebral palsy; Q04.6 Congenital cerebral cysts; Z45.42 Encounter for adjustment and management of neurostimulator | CPT/HCPCS: 95970; 99214 ==

== ENCOUNTER 2021-07-28 14:51 | Outpatient (REF) | payer MEDICARE, MEDICAID, SELFPAY ==
[2021-07-28 17:14] LABS: ALT 20 U/L (14-59); AST 14 U/L (15-37); Albumin 4.2 g/dL (3.4-5.0); Alkaline Phosphatase 123 U/L (46-116); Anion Gap 10.3 mmol/L (3-11); BUN 13 mg/dL (7-18); Bilirubin, Total 0.2 mg/dL (0.2-1.0); CO2 25.7 mmol/L (21.0-32.0); Calcium 9.1 mg/dL (8.5-10.1); Chloride 108 mmol/L (98-107); Estimated GFR 57.78 (mL/min/1.73m2); Glucose 120 mg/dL (74-106); Potassium 4.2 mmol/L (3.5-5.1); Sodium 144 mmol/L (136-145); Total Protein 7.4 g/dL (6.4-8.2)
[2021-07-29 14:03] LABS: Vitamin D 25 Total 45.1 ng/mL (30-100)
[2021-07-29 14:54] LABS: Calculated LDL 189 mg/dL (<100); Cholesterol 276 mg/dL (<200); HDL Cholesterol 64 mg/dL (40-60); Triglyceride 115 mg/dL (<150)
== END 2021-07-28 14:52 | disposition home or self-care (01) ==
LOC: NCHCN 14:51
PROVIDERS: PCP Family Medicine; Visit Provider Family Medicine
DX: Z00.00 Encounter for general adult medical examination without abnormal findings (principal); R63.4 Abnormal weight loss; G80.9 Cerebral palsy, unspecified
CPT/HCPCS: 80053; 80061; 82306

== ENCOUNTER → 2021-11-19 11:03 | Outpatient (BNVA) | payer MEDICARE, MEDICAID, SELFPAY | PROVIDERS: PCP Family Medicine; Referring Provider Family Medicine; Visit Provider Physical Therapy Assistant | DX: Z12.11 Encounter for screening for malignant neoplasm of colon (principal) ==

== ENCOUNTER → 2021-12-27 09:57 | Outpatient (BNVA) | payer MEDICARE, MEDICAID, SELFPAY | PROVIDERS: PCP Family Medicine; Referring Provider Family Medicine; Visit Provider Psychiatry & Neurology Neurology | DX: G47.10 Hypersomnia, unspecified (principal); F81.9 Developmental disorder of scholastic skills, unspecified; G40.119 Localization-related (focal) (partial) symptomatic epilepsy and epileptic syndromes with simple partial seizures, intractable, without status epilepticus; G80.8 Other cerebral palsy; Q04.6 Congenital cerebral cysts | CPT/HCPCS: 99214 ==

== ENCOUNTER 2022-01-20 13:08 | Emergency (ER) | payer MEDICARE, MEDICAID, SELFPAY ==
[2022-01-20 13:14] VITALS: BP 100/79; PULSE 100; RESP 17; TEMP 37; O2SAT 100
--- NOTE | 2022-01-20 13:15 | DI.RAD_ITS ---
Exam(s) XR FOOT LT COMPLETE EXAM: XR FOOT LT COMPLETE CLINICAL HISTORY: lateral pain. TECHNIQUE: 2D digital imaging was performed. Three views. COMPARISON: CR,XR XR FOOT LT COMPLETE from 03/30/2019 FINDINGS: BONES: There is a fracture extending obliquely through the mid to distal 5th metatarsal with mild dis placement and overriding of the fracture fragments. No additional fractures are seen. No bony destr uctive lesion is seen. JOINTS: No dislocation present. SOFT TISSUE: Swelling dorsal lateral foot IMPRESSION: Fifth metatarsal fracture. DATA REPOSITORY: RADIATION DOSE DELIVERED:
--- NOTE | 2022-01-20 13:22 | W.ED.GENAD ---
Discharge Plan Disposition Patient Disposition: HOME Condition: Stable Discharge Details Clinical Impression: Fracture of fifth metatarsal bone of left foot Primary Care Provider: Xiomara Walsh ED Provider: Rachid Allen Home Meds and New Rx's Prescriptions: Continued lamotrigine 150 mg tablet 150 mg PO BID Qty: 180 3RF citalopram 40 mg tablet 40 mg PO DAILY cholecalciferol (vitamin D3) 25 mcg (1,000 unit) capsule 1,000 unit PO BID Qty: 180 3RF clobazam [Onfi] 10 mg tablet 15 mg PO DAILY Qty: 135 3RF topiramate [Topamax] 50 mg tablet 150 mg PO BID Qty: 540 3RF acetaminophen [Tylenol] 325 MG tablet 650 mg PO PRN ibuprofen 200 MG capsule 200 mg PO PRN Discharge Instructions Instructions: Foot Fracture in Adults (ED) Additional Instructions: Please wear walking boot while awake and out of bed. May use your walker at home as well. A referral has been placed to orthopedics. The office number is [phone]. May apply ice to reduce pain and swelling. Elevate above the level of the heart to reduce pain and swelling. Medical Decision Making 56-year-old female presents from home. She stumbled and tripped entering the house last night and awoke with a painful and tender left lateral foot. She has been able to ambulate. She did not suffer any other injury. Referred for x-ray to rule out underlying fracture. X-ray reveals oblique/spiral fracture of the fifth metatarsal. Discussed with Dr. Vitale: We will place in walking boot, weightbearing as tolerated. She will follow-up in clinic for recheck HPI General Mode of arrival: ambulatory. Date/Time Provider Initiated Documentation: 01/20/22 13:13. Limitations to Documentation: no limitations. Information obtained by: patient. History of Present Illness 56 year old F presents to the emergency department with the chief complaint of Left lateral foot pain after tripping last night. No other injury, described as moderate, Quality is described as dull, and is localized to the left and lower extremity. Patient reports no radiation. Patient started experiencing this hour(s) and it has been constant. Rest improves symptom(s), Movement worsens symptoms . Patient notes no other symptoms.. Patient did receive the following treatments prior to arrival, none Related Data Home Medications Medication Instructions Recorded Confirmed acetaminophen 325 mg tablet 650 mg PO PRN 01/01/14 01/20/22 (Tylenol) ibuprofen 200 mg capsule 200 mg PO PRN 01/01/14 01/20/22 citalopram 40 mg tablet 40 mg PO DAILY 04/17/19 01/20/22 cholecalciferol (vitamin D3) 25 1,000 unit PO BID #180 caps 12/13/21 01/20/22 mcg (1,000 unit) capsule clobazam 10 mg tablet (Onfi) 15 mg PO DAILY #135 tab-caps 12/13/21 01/20/22 topiramate 50 mg tablet (Topamax) 150 mg PO BID #540 tabs 12/13/21 01/20/22 lamotrigine 150 mg tablet 150 mg PO BID #180 tabs 12/27/21 01/20/22 Previous Rx's Medication Instructions Recorded cholecalciferol (vitamin D3) 25 1,000 unit PO BID #180 caps 12/13/21 mcg (1,000 unit) capsule clobazam 10 mg tablet (Onfi) 15 mg PO DAILY #135 tab-caps 12/13/21 topiramate 50 mg tablet (Topamax) 150 mg PO BID #540 tabs 12/13/21 lamotrigine 150 mg tablet 150 mg PO BID #180 tabs 12/27/21 Allergies Allergy/AdvReac Type Severity Reaction Status Date / Time meperidine [From Demerol] AdvReac Mild Unverified 11/19/21 11:22 General Stated Complaint: Orthopedic SANTOS: 4 Review of Systems Narrative: 4 systems reviewed and otherwise negative PFSH All Active Problems (Updated 01/20/22 @ 14:13 by Rachid Allen MD) Fracture of fifth metatarsal bone of left foot (Acute) Right hemiparesis (Acute) Unexplained weight loss (Acute) Screening for colon cancer (Acute) Schizencephaly (Acute) left hemisphere, closed lip Cognitive developmental delay (Acute) Cerebral palsy, hemiplegic (Acute) right hemiplegic Focal epilepsy with impairment of consciousness, intractable (Acute) Medical History Depression Fracture of base of fifth metatarsal bone of right foot (09/23/18) Hypersomnia Loud snoring Right ankle sprain Sprain of calcaneofibular ligament of left ankle, subsequent encounter Traumatic subdural hemorrhage s/p fall down stairs from seizure 09/21/17 Surgical History S/P craniotomy exploratory as an infant S/P placement of VNS (vagus nerve [place] [facility] [place] Family History Other Adopted Social History Smoking/Tobacco Use Status: Former Tobacco Use Smoking risk assessment performed?: Yes Alcohol Intake: never Drug use: Never Substance use type: does not use Household members: family Housing: house current occupation: Disabled Pets and animals: Yes Pets and animals: dog(s) What type of physical activity do you participate in: walking Seatbelt use: always Do you feel safe at home: Yes Do you feel safe in your relationship?: Yes Additional Social history: Lives with caregiver and Aunt Pretty Hagan. Guardian is Aparna Delgado. Exam Narrative Exam Narrative: GEN: awake, alert, oriented 3. Pleasant, well groomed, interactive. HEAD: Normocephalic, atraumatic EYES: PERRL, EOMI NECK: Full ROM, no GUERITA, no menigismus CHEST/RESP: No respiratory distress EXT: Full ROM, left lateral football scout and mildly edematous. Discrete ecchymosis appreciated. Neuro: Grossly normal neurologic exam, conversant, interactive. Psych: Speech fluent, thoughts congruent, affect normal Course Vital Signs Vital signs: Vital Signs Temperature 37 C 01/20/22 13:14 Pulse 100 H 01/20/22 13:14 Respiratory Rate 17 01/20/22 13:14 Blood Pressure 100/79 01/20/22 13:14 Pulse Oximetry 100 01/20/22 13:14 Temperature 37 C 01/20/22 13:14 Temperature Source Temporal Artery Scan 01/20/22 13:14 Pulse 100 H 01/20/22 13:14 Respiratory Rate 17 01/20/22 13:14 Blood Pressure 100/79 01/20/22 13:14 Blood Pressure Position Sitting 01/20/22 13:14 Pulse Oximetry 100 01/20/22 13:14 Oxygen Delivery Method Room Air 01/20/22 13:14 Oxygen Flow Rate 0 01/20/22 13:14 Pain Level 6 01/20/22 13:14
--- NOTE | 2022-01-26 11:42 | NUR.NOTE ---
Nursing Note: Accessed pt chart to print provider note [facility].
== END 2022-01-20 14:31 | disposition home or self-care (01) ==
PROVIDERS: Emergency Provider Emergency Medicine; PCP Family Medicine
DX: S92.352A Displaced fracture of fifth metatarsal bone, left foot, initial encounter for closed fracture (principal); W18.49XA Other slipping, tripping and stumbling without falling, initial encounter; Z87.891 Personal history of nicotine dependence
CPT/HCPCS: 99283; 73630; 99284

== ENCOUNTER → 2022-02-11 01:04 | Outpatient (CLI) | payer MEDICARE, MEDICAID, SELFPAY ==
--- NOTE | 2022-02-11 15:04 | DI.DEXA_ITS ---
Exam(s) XR DEXA BONE DENSITY W/WO ESTEE EXAM: XR DEXA BONE DENSITY W/WO ESTEE CLINICAL HISTORY: OTHER SPECIFIED DISORDERS OF BONE DENSITY, M85.88; OSTEOPENIA, M85.80 TECHNIQUE: COMPARISON: No exams were available for comparison FINDINGS: Lateral Spine Image: Compression deformities of the L2 and L3 vertebral bodies are noted. Left hip: Total T-Score: -2.1 Total Z-Score: -1.4 T- and Z-scores: Findings are consistent with osteopenia. Lumbar Spine: Total T-Score: -0.8 Total Z-Score: 0.3 T- and Z-scores: Within normal limits. IMPRESSION: No evidence of osteoporosis.
== END ==
PROVIDERS: PCP Family Medicine; Visit Provider Family Medicine
DX: M85.88 Other specified disorders of bone density and structure, other site (principal); Z13.820 Encounter for screening for osteoporosis
CPT/HCPCS: 77080

== ENCOUNTER → 2022-03-28 10:31 | Outpatient (BNVA) | payer MEDICARE, MEDICAID, SELFPAY | PROVIDERS: PCP Family Medicine; Referring Provider Family Medicine; Visit Provider Psychiatry & Neurology Neurology | DX: G40.119 Localization-related (focal) (partial) symptomatic epilepsy and epileptic syndromes with simple partial seizures, intractable, without status epilepticus (principal); F81.9 Developmental disorder of scholastic skills, unspecified; G80.8 Other cerebral palsy; Q04.6 Congenital cerebral cysts | CPT/HCPCS: 95970 ==

== ENCOUNTER 2022-07-15 02:02 | Outpatient (CLI) | payer MEDICARE, MEDICAID, SELFPAY ==
[2022-07-15 11:22] LABS: HGB 11.3 g/dL (11.2-15.7); MCH 29.2 pg (27.0-33.0); MCHC 32.3 % (32.0-36.0); MCV 90 fL (80-95); Platelet Count 278 10^3/uL (130-400); RBC 3.87 10^6/uL (3.93-5.22); RDW 12.8 % (11.7-14.6); WBC 4.84 10^3/uL (4.4-10.8)
[2022-07-15 11:55] LABS: ALT 22 U/L (14-59); AST 19 U/L (15-37); Albumin 3.6 g/dL (3.4-5.0); Alkaline Phosphatase 106 U/L (46-116); Anion Gap 7.7 mmol/L (3-11); BUN 15 mg/dL (7-18); Bilirubin, Total 0.2 mg/dL (0.2-1.0); CO2 25.3 mmol/L (21.0-32.0); Calcium 8.9 mg/dL (8.5-10.1); Chloride 107 mmol/L (98-107); Estimated GFR 66.53 (mL/min/1.73m2); Glucose 85 mg/dL (74-106); Potassium 3.8 mmol/L (3.5-5.1); Sodium 140 mmol/L (136-145); TSH (W/Ref FT4) 0.75 uIU/mL (0.36-3.74); Total Protein 7.1 g/dL (6.4-8.2)
[2022-07-18 12:00] LABS: Topiramate 15.8 mcg/mL
[2022-07-18 14:00] LABS: Lamotrigine 8.9 mcg/mL (3.0-15.0)
== END 2022-07-15 02:03 | disposition home or self-care (01) ==
LOC: LBO 02:03
PROVIDERS: PCP Family Medicine; Visit Provider Family Medicine
DX: G40.109 Localization-related (focal) (partial) symptomatic epilepsy and epileptic syndromes with simple partial seizures, not intractable, without status epilepticus (principal); E78.5 Hyperlipidemia, unspecified; Z51.81 Encounter for therapeutic drug level monitoring; Z79.899 Other long term (current) drug therapy; R40.0 Somnolence; G80.9 Cerebral palsy, unspecified
CPT/HCPCS: 36415; 80053; 80175; 85027; 80201; 84146; 84443

== ENCOUNTER → 2022-08-01 08:13 | Outpatient (BNVA) | payer MEDICARE, MEDICAID, SELFPAY | PROVIDERS: PCP Family Medicine; Referring Provider Family Medicine; Visit Provider Psychiatry & Neurology Neurology | DX: G40.119 Localization-related (focal) (partial) symptomatic epilepsy and epileptic syndromes with simple partial seizures, intractable, without status epilepticus (principal); F81.9 Developmental disorder of scholastic skills, unspecified; G80.8 Other cerebral palsy; Q04.6 Congenital cerebral cysts | CPT/HCPCS: 99215 ==

== ENCOUNTER 2022-08-11 02:06 | Outpatient (CLI) | payer MEDICARE, MEDICAID, SELFPAY ==
--- NOTE | 2022-08-15 13:56 | PDOC.EEG ---
Neurology EEG EEG: [facility] Department of Neurology LONG-TERM AMBULATORY EEG REPORT Date of Recordin08/11/22 at 10:37:33 to 08/11/22 at 22:00:14 (Recording was set to go overnight but was disconnected at this time - accident or on purpose?) Interpreting Physician: Dr. Flor Tom PCP/Referring Provider: Dr. Xiomara Walsh Reason for study: Blanche is a 56 year-old with cerebral palsy and epilepsy with increasing behaviors and cognitive decline, concerning for subclinical seizure activity. Current Medications: Home Medications Medication Instructions Recorded Confirmed Type acetaminophen 325 mg tablet 650 mg PO PRN 01/01/14 08/01/22 History (Tylenol) ibuprofen 200 mg capsule 200 mg PO PRN 01/01/14 08/01/22 History cholecalciferol (vitamin D3) 25 1,000 unit PO BID #180 caps 12/13/21 08/01/22 Rx mcg (1,000 unit) capsule calcium carbonate 500 mg calcium 500 mg PO DAILY 03/28/22 08/01/22 History (1,250 mg) tablet clobazam 10 mg tablet (Onfi) 15 mg PO QHS #135 tab-caps 08/01/22 08/01/22 Rx lamotrigine 150 mg tablet 150 mg PO BID #180 tabs 08/01/22 08/01/22 Rx topiramate 50 mg tablet (Topamax) 150 mg PO BID #540 tabs 08/01/22 08/01/22 Rx METHODS: An 18-channel digitized electroencephalogram was recorded in the ambulatory setting with video. The 10/20 international system of electrode placement was used and bipolar and referential electrode montages were recorded. In addition to EEG the patient was monitored for EKG and by video. Activation procedures of photic stimulation and hyperventilation were performed if applicable. The duration of the recording was ~11.5 hours. DESCRIPTION OF EEG: Waking background activity: During maximal wakefulness an 8.5-Hz posterior background rhythm was present which was well-modulated, symmetrical, reactive to eye opening, and of moderate voltage. Faster frequencies were present in the bilateral anterior head regions. There was a normal anterior-posterior voltage gradient. Drowsy and sleeping background activity: During drowsiness, there was attenuation of the posterior dominant background rhythm and vertex waves. Normal stage II and III sleep was present with symmetrical sleep spindles, K-complexes, and vertex waves with slowing of the background rhythm to delta/theta frequencies. REM sleep manifested by rapid lateral eye movements and faster background rhythms was recorded. Arousal was unremarkable, though there were frequent arousals seen, consistent with patient's known history of untreated DARYL. Interictal abnormalities: There was intermittent, non-rhythmic, left temporal delta and theta slowing. There were occasional high-amplitude, left temporal spike-waves maximum at T3. These at times had a broad generalized field. They occasionally occurred in bursts lasting 2-3 seconds. Ictal findings: No events reported. Activating Procedures: Photic stimulation was stopped at patient's request. Hyperventilation was not performed. EKG: EKG revealed normal sinus rhythm. INTERPRETATION: This long-term EEG is abnormal due to intermittent left hemisphere slowing and left temporal spike-wave discharges. No events captured. PRIOR EEG: -EEG (12/2002): L hemisphere slowing and epileptiform discharges -[place]EEG [place]09[place] [facility] [place] Interictally, she had continuous left temporal slowing with left temporal spike-wave discharges.? There were rare right temporal spike-wave discharges which were generally synchronous with the left temporal.? 3 events were captured.? 2 of the events were manifested by staring with oral automatisms and salivation.? The other event was associated with right arm jerking with loss of awareness.? All 3 appeared to have a bitemporal onset. CLINICAL CORRELATION: The above findings are overall consistent with patients previous EEGs, known left hemisphere congenital brain changes, and known focal epilepsy. No events captured. Flor Tom MD
== END 2022-08-11 02:07 | disposition home or self-care (01) ==
LOC: RT 02:06
PROVIDERS: PCP Family Medicine; Visit Provider Psychiatry & Neurology Neurology
DX: R68.89 Other general symptoms and signs (principal); G80.8 Other cerebral palsy; R94.01 Abnormal electroencephalogram [EEG]
CPT/HCPCS: 95711; 95718

== ENCOUNTER → 2022-08-16 08:40 | Outpatient (BNVA) | payer MEDICARE, MEDICAID, SELFPAY | PROVIDERS: PCP Family Medicine; Referring Provider Family Medicine; Visit Provider Psychiatry & Neurology Neurology ==

== ENCOUNTER → 2022-11-15 14:47 | Outpatient (BNVA) | payer MEDICARE, MEDICAID, SELFPAY | PROVIDERS: PCP Family Medicine; Referring Provider Family Medicine; Visit Provider Psychiatry & Neurology Neurology | DX: G40.119 Localization-related (focal) (partial) symptomatic epilepsy and epileptic syndromes with simple partial seizures, intractable, without status epilepticus (principal); Q04.6 Congenital cerebral cysts; R13.10 Dysphagia, unspecified; R41.3 Other amnesia; G47.33 Obstructive sleep apnea (adult) (pediatric) | CPT/HCPCS: 95970; 99214 ==

== ENCOUNTER 2023-02-21 03:04 | Outpatient (CLI) | payer MEDICARE, MEDICAID, SELFPAY ==
[2023-02-21 15:28] LABS: TSH (W/Ref FT4) 0.68 uIU/mL (0.36-3.74)
[2023-02-21 16:05] LABS: Vitamin B12 716 pg/mL (193-986)
== END 2023-02-21 03:05 | disposition home or self-care (01) ==
LOC: LBO 03:04
PROVIDERS: PCP Family Medicine; Visit Provider Psychiatry & Neurology Neurology
DX: R68.89 Other general symptoms and signs (principal); F81.9 Developmental disorder of scholastic skills, unspecified
CPT/HCPCS: 36415; 99214; 82607; 84443; 95970

== ENCOUNTER → 2023-05-10 01:15 | Outpatient (CLI) | payer MEDICARE, MEDICAID, SELFPAY ==
--- NOTE | 2023-05-10 | DI.MAMMO_ITS ---
Exam(s) MG MAMMO SCREENING 60 MIN DUR EXAM: MG MAMMO SCREENING 60 MIN DUR CLINICAL HISTORY: SCREENING MAMMO FOR BREAST CANCER Z00.00 ADULT EXAM TECHNIQUE: Bilateral full field digital CC and MLO mammographic images were obtained with 3D tomosyn thesis and utilizing computer aided detection (CAD). COMPARISON: Available for comparison. FINDINGS: Masses/Architectural Distortion: None seen. Microcalcifications: No suspicious pleomorphic-type are seen. Skin Thickening/Nipple Retraction: None. IMPRESSION: 1. No significant interval change with no specific features of malignancy noted. 2. Unless there is more urgent need, screening mammography is recommended, as per [employer] guidelines. BI-RADS Category 1 - Negative Breast Density - Category C - Heterogeneously dense Breast density category C or D implies that the patient has dense breast tissue. Dense breast tissue is very common and is not abnormal but dense breast tissue can make it harder to find cancer on a ma mmogram. Also, dense breast tissue may increase their breast cancer risk. This information about the result of the mammogram report was provided to the patient to raise their awareness. Use this report when you speak with the patient about their risks for breast cancer, which includes their family hist ory. At that time, you may recommend for more screening tests (Ultrasound or MRI) as they might be us eful based on their risk. A negative radiographic report should not delay biopsy if a dominant or clinically suspicious mass is present. Up to ten percent of cancers are not identified on mammography. A negative report may reinforce clinical impression. Adenosis and dense breasts may obscure an underlying neoplasm. False positive reports average 6 to 10%. Patient will receive a letter notifying them of these results.
== END ==
PROVIDERS: PCP Family Medicine; Visit Provider Family Medicine
DX: Z12.31 Encounter for screening mammogram for malignant neoplasm of breast (principal)
CPT/HCPCS: 77063; 77067

== ENCOUNTER → 2023-06-01 13:22 | Outpatient (BNVA) | payer MEDICARE, MEDICAID, SELFPAY | PROVIDERS: PCP Family Medicine; Referring Provider Family Medicine; Visit Provider Psychiatry & Neurology Neurology | DX: G40.119 Localization-related (focal) (partial) symptomatic epilepsy and epileptic syndromes with simple partial seizures, intractable, without status epilepticus (principal); Q04.6 Congenital cerebral cysts; F81.9 Developmental disorder of scholastic skills, unspecified; G80.8 Other cerebral palsy | CPT/HCPCS: 99213; 95970 ==

== ENCOUNTER → 2023-10-18 13:07 | Outpatient (BNVA) | payer MEDICARE, MEDICAID, SELFPAY | PROVIDERS: PCP Family Medicine; Referring Provider Family Medicine; Visit Provider Psychiatry & Neurology Neurology | DX: F81.9 Developmental disorder of scholastic skills, unspecified (principal); G40.119 Localization-related (focal) (partial) symptomatic epilepsy and epileptic syndromes with simple partial seizures, intractable, without status epilepticus; G80.8 Other cerebral palsy; Q04.6 Congenital cerebral cysts | CPT/HCPCS: 99214; 95970 ==

== ENCOUNTER 2023-12-24 14:47 | Emergency (ER) | payer MEDICARE, MEDICAID, SELFPAY ==
[2023-12-24 14:48] VITALS: BP 134/85; PULSE 100; RESP 15; TEMP 36.6; O2SAT 93
--- NOTE | 2023-12-24 15:00 | DI.CT_ITS ---
Exam(s) CT HEAD CERVICAL SPINE WO EXAM: CT HEAD CERVICAL SPINE WO CLINICAL HISTORY: fall s/p seizure, pain. TECHNIQUE: Imaging Protocol: Axial computed tomography images with coronal and sagittal reformatted images were created and reviewed COMPARISON: CT CT HEAD CERVICAL SPINE WO from 08/30/2019 CR XR SHOULDER LT COMPLETE 2+V from 12/24/2023 FINDINGS: Head CT Ventricles and Extra axial spaces: Normal in size and morphology for the patient's age. Hemorrhage: None. Cerebral parenchyma: No evidence of mass or acute infarct. Stable area left-sided encephalomalacia Midline shift: None. Brainstem/Cerebellum: Asymmetry of the sella bowel hemispheres again noted. Calvarium: Left craniotomy again noted. Metallic clips creates mild artifact. Visualized Paranasal sinuses/Mastoids: Clear. Soft tissues: Unremarkable. Cervical Spine CT BONES: Vertebral body heights are maintained. Alignment is normal. There is no evidence of acute frac ture. Mild degenerative disc changes and facet degenerative changes are seen . SOFT TISSUES: No paraspinal hematoma. The airway appears intact. No pneumothorax is seen at the lung apices. Electronic device with leads projecting in the left side of the neck. IMPRESSION: Head CT: Postsurgical changes. No acute abnormality. C-spine CT: Mild degenerative changes, no acute abnormality. RADIATION DOSE DELIVERED: Total DLP DATA REPOSITORY: All CT scans at this facility are submitted to the National Radiology Data Registry (NRDR) Dose Index Registry (DIR) with the [employer] (ACR). RADIATION OPTIMIZATION: All CT scans at this facility use at least one of these dose optimization te chniques: automated exposure control; mA and/or kV adjustment per patient size (includes targeted exa ms where dose is matched to clinical indication); or iterative reconstruction.
--- NOTE | 2023-12-24 15:02 | W.ED.GENAD ---
Discharge Plan Disposition Patient Disposition: Home Condition: Stable Discharge Details Clinical Impression: Seizure, Closed fracture of left clavicle Primary Care Provider: Xiomara Walsh ED Provider: Keyur Ribera Home Meds and New Rx's Prescriptions: Continued citalopram 40 mg tablet 40 mg PO DAILY mirtazapine 7.5 mg tablet 7.5 mg PO QHS Qty: 90 3RF topiramate [Topamax] 50 mg tablet 150 mg PO BID Qty: 540 3RF clobazam [Onfi] 10 mg tablet 15 mg PO QHS Qty: 42 5RF cholecalciferol (vitamin D3) 25 mcg (1,000 unit) capsule 1,000 unit PO BID Qty: 180 3RF lamotrigine 150 mg tablet 150 mg PO BID Qty: 180 3RF acetaminophen [Tylenol] 325 MG tablet 650 mg PO PRN ibuprofen 200 MG capsule 200 mg PO PRN Discharge Instructions Additional Instructions: Your x-ray showed that you have a broken clavicle otherwise your labs and head CT did not show any concerning findings Call orthopedics on Monday to arrange for follow-up appointment If you feel more ill or have repeated seizures return to the emergency department for reevaluation Referrals: Xavier Koo MD [ [facility] STAFF PHYSICIAN] - [facility] General Date/Time Provider Initiated Documentation: 12/24/23 14:48. Limitations to Documentation: no limitations. Information obtained by: patient and family. History of Present Illness 58 year old F presents to the emergency department with the chief complaint of seizure, left shoulder pain, described as moderate, Quality is described as aching, and is localized to the left and upper extremity. Patient reports no radiation. Patient started experiencing this hour(s) (1) and it has been now resolved. No relieving factors improve symptom(s), No exacerbating factors reported . Patient notes denies chest pain, fever/chills and shortness of breath. Related Data Home Medications ?Medication ?Instructions ?Recorded ?Confirmed acetaminophen 325 mg tablet 650 mg PO PRN 01/01/14 12/24/23 (Tylenol) ibuprofen 200 mg capsule 200 mg PO PRN 01/01/14 12/24/23 citalopram 40 mg tablet 40 mg PO DAILY 11/15/22 12/24/23 mirtazapine 7.5 mg tablet 7.5 mg PO QHS #90 tabs 06/01/23 12/24/23 topiramate 50 mg tablet (Topamax) 150 mg (3 x 50 mg) PO BID #540 tabs 06/01/23 12/24/23 cholecalciferol (vitamin D3) 25 1,000 unit PO BID #180 caps 10/16/23 12/24/23 mcg (1,000 unit) capsule clobazam 10 mg tablet (Onfi) 15 mg (1.5 x 10 mg) PO QHS #42 10/16/23 12/24/23 tab-caps lamotrigine 150 mg tablet 150 mg PO BID #180 tabs 11/14/23 12/24/23 Previous Rx's ?Medication ?Instructions ?Recorded mirtazapine 7.5 mg tablet 7.5 mg PO QHS #90 tabs 06/01/23 topiramate 50 mg tablet (Topamax) 150 mg (3 x 50 mg) PO BID #540 tabs 06/01/23 cholecalciferol (vitamin D3) 25 1,000 unit PO BID #180 caps 10/16/23 mcg (1,000 unit) capsule clobazam 10 mg tablet (Onfi) 15 mg (1.5 x 10 mg) PO QHS #42 10/16/23 tab-caps lamotrigine 150 mg tablet 150 mg PO BID #180 tabs 11/14/23 Allergies Allergy/AdvReac Type Severity Reaction Status Date / Time meperidine (From Demerol) AdvReac Mild Other (See Verified 10/18/23 13:15 Comment) General Stated Complaint: Seizure SANTOS: 3 Review of Systems All systems reviewed & are unremarkable except as noted in HPI and below Constitutional Constitutional: Denies chills, Denies fever(s) and Denies weakness Cardiovascular Cardiovascular: Denies chest pain and Denies dyspnea Respiratory Respiratory: Denies dyspnea Gastrointestinal Gastrointestinal: Denies abdominal pain and Denies vomiting Neurologic Neurologic: Reports seizure-like activity and Denies weakness Exam Const General: no acute distress Orientation: alert HENMT Ears: external ears normal General nose exam: external nose normal Mouth: moist mucous membranes Eyes General: appearance normal, both eyes and all related structures Neck Neck: normal visual inspection and tender Resp Effort & Inspection: normal respiratory effort and able to speak in complete sentences Cardio Rate: regular rate GI Palpation: soft and nontender Skin General skin exam: no rashes or lesions noted Neuro General: patient alert and patient oriented x3 Extrem General: capillary refill normal and no cyanosis Psych Mental Status: mental status grossly normal Course Vital Signs Vital signs: Vital Signs Temperature 36.6 C 12/24/23 14:48 Pulse 100 H 12/24/23 14:48 Respiratory Rate 15 12/24/23 14:48 Blood Pressure 134/85 12/24/23 14:48 Pulse Oximetry 93 12/24/23 14:48 Temperature 36.6 C 12/24/23 14:48 Pulse 100 H 12/24/23 14:48 Respiratory Rate 15 12/24/23 14:48 Blood Pressure 134/85 12/24/23 14:48 Blood Pressure Position Sitting 12/24/23 14:48 Pulse Oximetry 93 12/24/23 14:48 Oxygen Delivery Method Room Air 12/24/23 14:48 Oxygen Flow Rate 0 12/24/23 14:48 Medical Decision Making 58-year-old female with a history of cerebral palsy and seizure disorder with right sided hemiparesis comes in with her boyfriend after she apparently had a 1 minute tonic-clonic seizure prior to boyfriend after they were walking outside. She fell and landed on her left side. This happened approximately 1 hour ago and she now feels well other than left shoulder pain. She said she did have a headache initially after but now has none. She is oriented x 4 and arrival, she has tenderness over the lateral left shoulder, no pain over the scapula, no midline C-spine tenderness but is tender over the left lateral paraspinous muscles. No signs of trauma to the head. She has no chest or abdominal tenderness or back tenderness. Given her history of reported suspect she did have a seizure, will check a CBC and CMP to evaluate for possible electrolyte abnormalities. She has no fevers or other symptoms to suggest an underlying infectious etiology. Will obtain x-rays of the left shoulder to evaluate for fracture. She has no normal distal sensation and pulses so doubt neurovascular injury. Given she had a headache after the fall and seizure will obtain CT of the head and C-spine. Imaging unremarkable other than a distal clavicle fracture for which she will get a sling. Labs unremarkable and she is stable. Will refer to orthopedics for follow-up, and also advised follow-up with her PCP and return precautions given Differential Diagnosis Differential Diagnosis: Fracture, seizure, electrolyte abnormality Medical Records Medical records reviewed: Yes I reviewed the patient's medical records. Imaging Data Radiologic Study: Attestation: I personally reviewed and interpreted this imaging study as follows: Imaging: X-Ray Radiologist's impression: Exam(s) XR SHOULDER LT COMPLETE 2+V EXAM: XR SHOULDER LT COMPLETE 2+V CLINICAL HISTORY: fall, pain. TECHNIQUE: 2D digital imaging was performed. Three views. COMPARISON: No exams were available for comparison FINDINGS: BONES: Minimally displaced distal clavicle fracture. Question of could of nondisplaced fracture of the coracoid versus overlying stool bony structures. No bony destructive lesion is seen. JOINTS: No dislocation present. SOFT TISSUE: Stimulator device with lead projecting in left side of neck. IMPRESSION: Distal clavicle fracture. Question of a nondisplaced coracoid fracture versus overlying structures. Radiologic Study #2: Attestation: I personally reviewed and interpreted this imaging study as follows: Imaging: CT Scan Radiologist's impression: No acute findings on head or C-spine CT Lab Data Lab results reviewed: Yes I reviewed the patient's lab results. Quality:SDOH Health Related Social Needs: No Data to Display PFSH All Active Problems (Updated 12/24/23 @ 17:23 by Keyur Ribera MD) Closed fracture of left clavicle (Acute) Seizure (Acute) Dysphagia (Acute) Right hemiparesis (Acute) Unexplained weight loss (Acute) Screening for colon cancer (Acute) Schizencephaly (Acute) left hemisphere, closed lip Cognitive developmental delay (Acute) Cerebral palsy, hemiplegic (Acute) right hemiplegic Focal epilepsy with impairment of consciousness, intractable (Acute) Medical History Seizure disorder Cerebral palsy Subdural hematoma Loss of balance Knee pain, bilateral Snoring Somnolence, daytime Menopause Osteopenia Hyperlipidemia Loud snoring Right ankle sprain Hypersomnia Traumatic subdural hemorrhage s/p fall down stairs from seizure 09/21/17 Sprain of calcaneofibular ligament of left ankle, subsequent encounter Fracture of base of fifth metatarsal bone of right foot (09/23/18) Depression Surgical History S/P tubal ligation S/P placement of VNS (vagus nerve stimulation) device [place] [facility] [place]/P craniotomy exploratory as an infant Family History Other Adopted Social History Smoking/Tobacco Use Status: Former Tobacco Use Smoking risk assessment performed?: Yes Alcohol Intake: never Drug use: Never Substance use type: does not use Household members: family Housing: house current occupation: Disabled Pets and animals: Yes Pets and animals: dog(s) What type of physical activity do you participate in: walking Seatbelt use: always Do you feel safe at home: Yes Do you feel safe in your relationship?: Yes Additional Social history: Lives with caregiver and Aunt Pretty Hagan. Guardian is Aparna Delgado.
[2023-12-24] MEDS: Acetaminophen Solution 650 MG/20.3 ML CUP PO (15:40)
[2023-12-24 15:43] LABS: Abs Immature Grans 0.03 10^3/uL (0.0-0.06); Absolute Basophil Count 0.02 10^3/uL (0.0-0.2); Absolute Eosinophil Count 0.07 10^3/uL (0.0-0.7); Absolute Lymphocyte Count 1.62 10^3/uL (1.2-3.4); Absolute Monocyte Count 0.32 10^3/uL (0.1-0.8); Absolute Neutrophil Count 3.83 10^3/uL (1.2-6.7); Basophils % 0.3 %; Eosinophils % 1.2 %; HCT 36.9 % (36.0-46.0); HGB 11.8 g/dL (11.2-15.7); Immature Grans % 0.5 %; Lymphocytes % 27.5 %; MCV 97 fL (80-95); MPV 10.9 fL (8.0-11.0); Monocytes % 5.4 %; Neutrophils % 65.1 %; Platelet Count 220 10^3/uL (130-400); RBC 3.81 10^6/uL (3.93-5.22); RDW 12.4 % (11.7-14.6); RDW-SD 44.4 fL; WBC 5.89 10^3/uL (4.4-10.8)
[2023-12-24 15:54] LABS: ALT 27 U/L (14-59); AST 30 U/L (15-37); Albumin 3.4 g/dL (3.4-5.0); Alkaline Phosphatase 108 U/L (46-116); Anion Gap 8.7 mmol/L (3-11); BUN 13 mg/dL (7-18); Bilirubin, Total 0.17 mg/dL (0.2-1.0); CO2 24.3 mmol/L (21.0-32.0); CREATININE 0.9 mg/dL (0.55-1.02); Chloride 108 mmol/L (98-107); Estimated GFR 74.57 (mL/min/1.73m2); Glucose 98 mg/dL (74-106); Magnesium 2.3 mg/dL (1.8-2.4); Potassium 3.6 mmol/L (3.5-5.1); Sodium 141 mmol/L (136-145)
--- NOTE | 2023-12-24 17:17 | DI.VRAD_ITS ---
PROCEDURE INFORMATION: Exam: XR Left Shoulder Exam date and time: 12/24/2023 3:46 PM Age: 58 years old Clinical indication: Shoulder; Left; Patient HX: Pain S/P fall TECHNIQUE: Imaging protocol: Radiologic exam of the left shoulder. Views: 2 or more views. COMPARISON: CT HEAD CERVICAL SPINE WO 12/24/2023 3:38 PM FINDINGS: Bones/joints: Minimally impacted distal clavicular fracture without displacement. The acromioclavicular and glenohumeral joints are intact Soft tissues: Swelling over the distal clavicle Left-sided neural stimulator noted IMPRESSION: Distal left clavicular fracture as noted Dictated and Authenticated by: Atif Dubon MD. Ordering:KATIE Baer MD
--- NOTE | 2023-12-24 17:18 | DI.VRAD_ITS ---
PROCEDURE INFORMATION: Exam: CT Head Without Contrast Exam date and time: 12/24/2023 3:38 PM Age: 58 years old Clinical indication: Other: Fall S/P seizure, pain TECHNIQUE: Imaging protocol: Computed tomography of the head without contrast. Radiation optimization: All CT scans at this facility use at least one of these dose optimization techniques: automated exposure control; mA and/or kV adjustment per patient size (includes targeted exams where dose is matched to clinical indication); or iterative reconstruction. COMPARISON: CT HEAD CERVICAL SPINE WO 08/30/2019 10:09 AM FINDINGS: Brain: Left-sided schizencephaly/encephalomalacia, grossly stable No hemorrhage. Unremarkable white matter. No mass effect. Cerebral ventricles: No ventriculomegaly. Paranasal sinuses: Visualized sinuses are unremarkable. No fluid levels. Mastoid air cells: Visualized mastoid air cells are well aerated. Bones: Left-sided craniotomies are grossly stable with adjacent clips versus radiopaque foreign bodies No acute fracture. Soft tissues: Unremarkable. IMPRESSION: No acute intracranial abnormality. Grossly stable chronic findings PROCEDURE INFORMATION: Exam: CT Cervical Spine Without Contrast Exam date and time: 12/24/2023 3:38 PM Age: 58 years old Clinical indication: Other: Fall S/P seizure, pain TECHNIQUE: Imaging protocol: Computed tomography of the cervical spine without contrast. Radiation optimization: All CT scans at this facility use at least one of these dose optimization techniques: automated exposure control; mA and/or kV adjustment per patient size (includes targeted exams where dose is matched to clinical indication); or iterative reconstruction. COMPARISON: CT HEAD CERVICAL SPINE WO 08/30/2019 10:09 AM FINDINGS: Bones: No acute fracture. Alignment is grossly maintained.No significant disc bulge or herniation. No severe spinal canal stenosis. No significant neural foraminal narrowing. Lungs: Lung apices are normal. Soft tissues: Unremarkable. IMPRESSION: No acute findings. Dictated and Authenticated by: Atif Dubon MD. Ordering:KATIE Baer MD
[2023-12-24 17:22] VITALS: PULSE 99; RESP 18; O2SAT 97
[2023-12-28 15:52] LABS: Topiramate 9.9 mcg/mL
== END 2023-12-24 17:36 | disposition home or self-care (01) ==
PROVIDERS: Emergency Provider Emergency Medicine; PCP Family Medicine
DX: G40.909 Epilepsy, unspecified, not intractable, without status epilepticus (principal); S42.032A Displaced fracture of lateral end of left clavicle, initial encounter for closed fracture; E78.5 Hyperlipidemia, unspecified; G80.8 Other cerebral palsy; Z87.891 Personal history of nicotine dependence; W18.39XA Other fall on same level, initial encounter; Y93.01 Activity, walking, marching and hiking; Y92.89 Other specified places as the place of occurrence of the external cause; Z96.82 Presence of neurostimulator
CPT/HCPCS: 36415; 80053; 80175; 99285; 70450; 72125; 73030; 80201; 83735; 85025; 99284

== ENCOUNTER 2024-01-03 11:10 | Outpatient (CLI) | payer MEDICARE, MEDICAID, SELFPAY ==
--- NOTE | 2024-01-03 08:24 | DI.RAD_ITS ---
Exam(s) XR CLAVICLE LT EXAM: XR CLAVICLE LT CLINICAL HISTORY: f/u fracture TECHNIQUE: 2D digital imaging was performed of the left clavicle. Two images were obtained. AP and axial views were obtained. COMPARISON: CR,XR XR SHOULDER LT COMPLETE 2+V from 12/24/2023 FINDINGS: BONES: There is again seen a mildly displaced fracture of the distal aspect of the left clavicle. Th ere also is again seen a deformity of the coracoid process suggesting a fracture through the base. N o bony destructive lesion is seen. JOINTS: No dislocation present. SOFT TISSUE: Normal. IMPRESSION: Stable alignment of the distal left clavicular fracture and the fracture through the coracoid. DATA REPOSITORY: RADIATION DOSE DELIVERED:
== END 2024-01-03 11:11 | disposition home or self-care (01) ==
LOC: DIORS 16:08
PROVIDERS: PCP Family Medicine; Visit Provider Student in an Organized Health Care Education/Training Program
DX: S42.032A Displaced fracture of lateral end of left clavicle, initial encounter for closed fracture; W19.XXXA Unspecified fall, initial encounter
CPT/HCPCS: 99213; 73000

== ENCOUNTER 2024-02-07 14:29 | Outpatient (CLI) | payer MEDICARE, MEDICAID, SELFPAY ==
--- NOTE | 2024-02-07 10:00 | DI.RAD_ITS ---
Exam(s) XR CLAVICLE LT EXAM: XR CLAVICLE LT CLINICAL HISTORY: F/U CLAVICLE FX. TECHNIQUE: 2D digital imaging was performed. COMPARISON: CR XR CLAVICLE LT from 01/03/2024 FINDINGS: Two views There has been some partial healing of the fracture in the lateral aspect of the left clavicle. No n ew fractures identified. The AC joint is not distracted. IMPRESSION: Further healing evident. DATA REPOSITORY: RADIATION DOSE DELIVERED:
== END 2024-02-07 14:30 | disposition home or self-care (01) ==
LOC: DIORS 14:29
PROVIDERS: PCP Family Medicine; Referring Provider Family Medicine; Visit Provider Student in an Organized Health Care Education/Training Program
DX: S42.002D Fracture of unspecified part of left clavicle, subsequent encounter for fracture with routine healing (principal); X58.XXXD Exposure to other specified factors, subsequent encounter
CPT/HCPCS: 99213; 73000

== ENCOUNTER 2024-02-18 09:17 | Emergency (ER) | payer MEDICARE, MEDICAID, SELFPAY ==
--- NOTE | 2024-02-18 09:15 | RT.EKG_ITS ---
APPROVED REPORT Exam: Resting ECG Reason for Exam: seizure Patient Location: E HR:103 bpm ECG Measurements Heart Rate [address] 140 P 31 QRSd 102 QRS 33 QT 350 T 245 QTc 458 Conclusion Sinus tachycardia, rate 103 No interval abnormalities Lateral leads,T wave inversion
[2024-02-18 09:23] VITALS: BP 119/80; PULSE 105; RESP 20; TEMP 36.9; O2SAT 97
[2024-02-18 09:30] VITALS: BP 119/80; PULSE 105; RESP 20; TEMP 36.9; O2SAT 97
--- NOTE | 2024-02-18 09:30 | DI.RAD_ITS ---
Exam(s) XR HIP RT COMPLETE AP PELVIS EXAM: XR HIP RT COMPLETE AP PELVIS CLINICAL HISTORY: fall monday. TECHNIQUE: 2D digital imaging was performed of the right hip. Two images were obtained. AP pelvis a nd lateral right hip views were obtained. COMPARISON: CR,XR XR PELVIS AP from 03/30/2019 FINDINGS: BONES: No acute fracture is present. No bony destructive lesion is seen. JOINTS: No dislocation present. SOFT TISSUE: Normal. IMPRESSION: Unremarkable radiographs of the right hip. Unremarkable radiographs of the pelvis. DATA REPOSITORY: RADIATION DOSE DELIVERED:
--- NOTE | 2024-02-18 09:30 | DI.RAD_ITS ---
Exam(s) XR CHEST 2V PA LATERAL EXAM: XR CHEST 2V PA LATERAL CLINICAL HISTORY: SOB after fall monday TECHNIQUE: 2D digital imaging was performed of the chest. Two images were obtained. PA and lateral views were obtained. COMPARISON: CR,XR XR RIBS LT W PA LAT CHEST from 03/30/2019 FINDINGS: MEDIASTINUM: Normal. HEART: Normal. PULMONARY VASCULATURE: Normal. LUNGS: Clear. PLEURAL SPACE: No pleural effusion or pneumothorax. BONE:Within normal limits for the patient's age. There is an acute fracture of the lateral aspect of the left 3rd rib. OTHER FINDINGS:There is about a pack again seen overlying the left chest wall. IMPRESSION: Acute fracture involving the lateral aspect of the left 3rd rib. No pulmonary infiltrate or pneumoth orax. DATA REPOSITORY: RADIATION DOSE DELIVERED:
[2024-02-18 09:31] VITALS: RESP 20
[2024-02-18] MEDS: Acetaminophen 500 MG TAB 1000 MG PO (09:48)
--- NOTE | 2024-02-18 09:48 | ED.GENADUL_ITS ---
Discharge Plan Disposition Patient Disposition: Home Condition: Stable Discharge Details Clinical Impression: Left rib fracture, Focal epilepsy with impairment of consciousness, intractable, Cerebral palsy, hemiplegic, Cognitive developmental delay, Shortness of breath Primary Care Provider: Xiomara Walsh ED Provider: Flor Thacker Home Meds and New Rx's Prescriptions: New lidocaine 5 % adhesive patch,medicated 1 patch topical DAILY Qty: 30 0RF Rx Instructions: leave on most painful area for up to 12 hrs No Action citalopram 40 mg tablet 40 mg PO DAILY mirtazapine 7.5 mg tablet 7.5 mg PO QHS Qty: 90 3RF topiramate [Topamax] 50 mg tablet 150 mg PO BID Qty: 540 3RF clobazam [Onfi] 10 mg tablet 15 mg PO QHS Qty: 42 5RF cholecalciferol (vitamin D3) 25 mcg (1,000 unit) capsule 1,000 unit PO BID Qty: 180 3RF lamotrigine 150 mg tablet 150 mg PO BID Qty: 180 3RF acetaminophen [Tylenol] 325 MG tablet 650 mg PO PRN ibuprofen 200 MG capsule 200 mg PO PRN Discharge Instructions Instructions: Rib Fracture or Bruised Rib ED Additional Instructions: You were seen in the emergency department today for evaluation of pain after a fall with shortness of breath, and were found to have a rib fracture on the left side. In our department you had a full physical examination performed, had laboratory studies that were reassuring, and you did not have any injury to your hip. I provided you with the incentive spirometer, a machine where you breathe in through the straw to lift up the cylinder, which will help your lungs expanded and improve your breathing. You should also use Tylenol, ibuprofen, and lidocaine patches over the area of maximal pain. I have sent some lidocaine patches to your pharmacy. You should follow-up with your primary care provider in the next 2 days to discuss this visit and any symptoms that change, worsen, or persist. Thank you for allowing us to be part of your care. HPI General Mode of arrival: ambulatory . Date/Time Provider Initiated Documentation: 02/18/24 09:19 . Limitations to Documentation: no limitations . Information obtained by: patient, family and old records reviewed . HPI Narrative: HPI: This is a 58-year-old female patient with a past medical history significant for right hemiplegic cerebral palsy, seizure disorder, who is presenting for evaluation of shortness of breath. The patient reports that on Monday she had a seizure, fell and thinks that she potentially injured her right hip. She reports that she has also noted since that time that she has some harshness of her breathing, and feels that it is worse when she exerts herself like when she is walking to the bathroom. She has not had any additional falls or injuries, otherwise feels like she is in her normal state of health, without recent fever or illness. She has not had coughing, has no personal history of asthma. She reports that she feels a sharpness in her chest when she tries to take a deep breath. The patient reports that her right side of her hip also hurts after the fall, states that she has been able to walk, and does not have any back pain as associated with this. No weakness or numbness that is atypical for her on that side. Exam: Gen: Awake and alert, in no apparent distress HEENT: Non-icteric sclera, PERRL, scalp atraumatic Neck: Supple, no midline cervical tenderness Lungs: No apparent respiratory distress, normal respiratory effort. The patient's breath sounds have scattered crackles throughout, but no focal wheezes, rhonchi, rales CV: Appears well perfused, heart with regular rate and rhythm, strong distal pulses. Chest wall is tender to palpation along the right costal margin with no overlying skin changes. Abdomen: Non-distended, soft, nontender to palpation without rigidity, rebound, or guarding. MSK: Moves 4 extremities without apparent limitation in ROM. The patient has no T or L-spine tenderness, pelvis is stable to AP compression with minimal tenderness to palpation along the lateral aspect of the right hip. At baseline, the patient's right side is more atrophied than the left, with some notable asymmetry of the bilateral lower extremities. No peripheral edema noted Skin: Visualized skin without rashes, cyanosis. Neuro: Shuffling gait which is described as normal for the patient's baseline. No obvious focal deficits or facial asymmetry from patient baseline. Speaks in full sentences. Psych: Appropriate for situation. MDM: This is a 58-year-old female patient who is presenting for evaluation of shortness of breath and hip pain after a fall on Monday. Reassuringly, the patient does not endorse head strike or head pain, has no new neurodeficits and is otherwise in her normal state of health. My differential includes but is not limited to rib injury, pulmonary contusion, pneumonia, viral upper respiratory infection. Considered reactive airway disease exacerbation, pulmonary edema, pleural effusion, pneumothorax. Additionally I considered hip contusion, fracture, sprain/strain. The patient is reassuringly without chest pain at rest which would increase my concern for myocarditis. No evidence of neck or back pain, no new neurodeficits to suggest intracranial hemorrhage, stroke, spinal cord injury. The patient did not experience a seizure today and is able to take all of her medications as prescribed. Will obtain laboratory studies to include Fluvid, CBC, CMP, troponin, and will obtain x-ray imaging of the patient's chest and pelvis. I will provide her with Tylenol for initial symptomatic management. ED Course: I independently interpreted the laboratory studies, which show no significant leukocytosis, new anemia, or thrombocytopenia. The chemistry panel is without evidence of electrolyte abnormality, kidney dysfunction, or liver injury. Fluvid negative. Independently interpreted the patient's imaging studies. She has no evidence of fracture of her pelvis, but does have an isolated third left rib fracture, which is likely contributing to her shortness of breath. No underlying lung parenchymal injuries noted. Given the duration of time from the injury, it is reasonable to trial pulmonary hygiene in the outpatient environment. The patient was educated on use of the incentive spirometer, was able to pull 1500ml in the room. I counseled her on multimodal pain management, provided her with a prescription for the lidocaine patches. At this time, the patient has had a full medical evaluation and is safe for discharge to home. They are hemodynamically stable, ambulatory, and tolerating PO. They are understanding of the follow-up plan and return precautions. They left our facility without incident. Flor Thacker MD Related Data Home Medications ?Medication ?Instructions ?Recorded ?Confirmed acetaminophen 325 mg tablet 650 mg PO PRN 01/01/14 02/18/24 (Tylenol) ibuprofen 200 mg capsule 200 mg PO PRN 01/01/14 02/18/24 citalopram 40 mg tablet 40 mg PO DAILY 11/15/22 02/18/24 mirtazapine 7.5 mg tablet 7.5 mg PO QHS #90 tabs 06/01/23 02/18/24 topiramate 50 mg tablet (Topamax) 150 mg (3 x 50 mg) PO BID #540 tabs 06/01/23 02/18/24 cholecalciferol (vitamin D3) 25 1,000 unit PO BID #180 caps 10/16/23 02/18/24 mcg (1,000 unit) capsule clobazam 10 mg tablet (Onfi) 15 mg (1.5 x 10 mg) PO QHS #42 10/16/23 02/18/24 tab-caps lamotrigine 150 mg tablet 150 mg PO BID #180 tabs 11/14/23 02/18/24 lidocaine 5 % topical patch 1 patch topical DAILY #30 ea 02/18/24 Previous Rx's ?Medication ?Instructions ?Recorded mirtazapine 7.5 mg tablet 7.5 mg PO QHS #90 tabs 06/01/23 topiramate 50 mg tablet (Topamax) 150 mg (3 x 50 mg) PO BID #540 tabs 06/01/23 cholecalciferol (vitamin D3) 25 1,000 unit PO BID #180 caps 10/16/23 mcg (1,000 unit) capsule clobazam 10 mg tablet (Onfi) 15 mg (1.5 x 10 mg) PO QHS #42 10/16/23 tab-caps lamotrigine 150 mg tablet 150 mg PO BID #180 tabs 11/14/23 lidocaine 5 % topical patch 1 patch topical DAILY #30 ea 02/18/24 Allergies Allergy/AdvReac Type Severity Reaction Status Date / Time meperidine (From Demerol) AdvReac Mild Other (See Verified 02/18/24 09:31 Comment) General Stated Complaint: SOB SANTOS: 3 Course Vital Signs Vital signs: Vital Signs Temperature 36.9 C 02/18/24 09:23 Pulse 105 H 02/18/24 09:23 Respiratory Rate 20 02/18/24 09:23 Blood Pressure 119/80 02/18/24 09:23 Pulse Oximetry 97 02/18/24 09:23 Temperature 36.9 C 02/18/24 09:30 Temperature Source Temporal Artery Scan 02/18/24 09:30 Pulse 105 H 02/18/24 09:30 Respiratory Rate 20 02/18/24 09:31 Respiratory Effort Short of Breath, Labored 02/18/24 09:31 Respiratory Depth Deep 02/18/24 09:31 Respiratory Pattern Normal 02/18/24 09:31 Blood Pressure 119/80 02/18/24 09:30 Blood Pressure Position Sitting 02/18/24 09:30 Pulse Oximetry 97 02/18/24 09:30 Oxygen Delivery Method Room Air 02/18/24 09:30 Oxygen Flow Rate 0 02/18/24 09:30 Pain Level 9 02/18/24 09:30 Medical Decision Making Quality:SDOH Health Related Social Needs: No Data to Display PFSH All Active Problems (Updated 02/18/24 @ 11:21 by Flor Thacker MD) Shortness of breath (Acute) Left rib fracture (Acute) Dysphagia (Acute) Right hemiparesis (Acute) Unexplained weight loss (Acute) Screening for colon cancer (Acute) Schizencephaly (Acute) left hemisphere, closed lip Cognitive developmental delay (Acute) Cerebral palsy, hemiplegic (Acute) right hemiplegic Focal epilepsy with impairment of consciousness, intractable (Acute) Medical History Seizure disorder Cerebral palsy Subdural hematoma Loss of balance Knee pain, bilateral Snoring Somnolence, daytime Menopause Osteopenia Hyperlipidemia Loud snoring Right ankle sprain Hypersomnia Traumatic subdural hemorrhage s/p fall down stairs from seizure 09/21/17 Sprain of calcaneofibular ligament of left ankle, subsequent encounter Fracture of base of fifth metatarsal bone of right foot (09/23/18) Depression Surgical History S/P tubal ligation S/P placement of VNS (vagus nerve stimulation) device 04/15/13 at [facility] [place] S/P craniotomy exploratory as an infant Family History Other Adopted Social History Smoking/Tobacco Use Status: Former Tobacco Use Smoking risk assessment performed?: Yes Alcohol Intake: never Drug use: Never Substance use type: does not use Household members: family Housing: house current occupation: Disabled Pets and animals: Yes Pets and animals: dog(s) What type of physical activity do you participate in: walking Seatbelt use: always Do you feel safe at home: Yes Do you feel safe in your relationship?: Yes Additional Social history: Lives with caregiver and Aunt Pretty Hagan. Guardian is Aparna Delgado.
[2024-02-18 10:37] LABS: Abs Immature Grans 0.03 10^3/uL (0.0-0.06); Absolute Basophil Count 0.01 10^3/uL (0.0-0.2); Absolute Eosinophil Count 0.17 10^3/uL (0.0-0.7); Absolute Lymphocyte Count 2.11 10^3/uL (1.2-3.4); Absolute Monocyte Count 0.36 10^3/uL (0.1-0.8); Absolute Neutrophil Count 4.39 10^3/uL (1.2-6.7); Basophils % 0.1 %; Eosinophils % 2.4 %; HCT 33.8 % (36.0-46.0); HGB 10.4 g/dL (11.2-15.7); Immature Grans % 0.4 %; Lymphocytes % 29.8 %; MCH 30.4 pg (27.0-33.0); MCHC 30.8 % (32.0-36.0); MCV 99 fL (80-95); MPV 9.9 fL (8.0-11.0); Monocytes % 5.1 %; Neutrophils % 62.2 %; Platelet Count 343 10^3/uL (130-400); RBC 3.42 10^6/uL (3.93-5.22); RDW 12.7 % (11.7-14.6); RDW-SD 45.7 fL; WBC 7.07 10^3/uL (4.4-10.8)
[2024-02-18 10:37] LABS: COVID-19 PCR Negative (Negative); Influenza A PCR Negative (Negative); Influenza B PCR Negative (Negative); RSV PCR Negative (Negative)
[2024-02-18 10:38] LABS: Source Nasopharynx
[2024-02-18 10:55] LABS: ALT 19 U/L (14-59); AST 18 U/L (15-37); Albumin 3.2 g/dL (3.4-5.0); Alkaline Phosphatase 214 U/L (46-116); Anion Gap 10.1 mmol/L (3-11); BUN 17 mg/dL (7-18); Bilirubin, Total 0.21 mg/dL (0.2-1.0); CO2 26.9 mmol/L (21.0-32.0); CREATININE 0.9 mg/dL (0.55-1.02); Calcium 9.1 mg/dL (8.5-10.1); Chloride 107 mmol/L (98-107); Estimated GFR 74.57 (mL/min/1.73m2); Glucose 116 mg/dL (74-106); Magnesium 2.3 mg/dL (1.8-2.4); Potassium 4.1 mmol/L (3.5-5.1); Sodium 144 mmol/L (136-145); Total Protein 7.1 g/dL (6.4-8.2)
[2024-02-18 10:56] LABS: Troponin I < 4 ng/L (<or=51)
--- NOTE | 2024-02-18 11:05 | DI.VRAD_ITS ---
PROCEDURE INFORMATION: Exam: XR Right Hip Exam date and time: 02/18/2024 10:11 AM Age: 58 years old Clinical indication: Other: Fall Monday TECHNIQUE: Imaging protocol: Radiologic exam of the right hip. Views: 2 or 3 views hip with pelvis when performed. COMPARISON: CT CHEST/ABD/PEL W 08/30/2019 10:19 AM FINDINGS: Bones/joints: Unremarkable. No acute fracture. Soft tissues: Unremarkable. IMPRESSION: No acute fracture. Dictated and Authenticated by: Shiloh Baker MD. Ordering:SHAGUFTA Gruber MD
--- NOTE | 2024-02-18 11:05 | DI.VRAD_ITS ---
PROCEDURE INFORMATION: Exam: XR Chest Exam date and time: 02/18/2024 10:07 AM Age: 58 years old Clinical indication: Other: SOB after fall Monday TECHNIQUE: Imaging protocol: Radiologic exam of the chest. Views: 2 views. COMPARISON: CT CHEST/ABD/PEL W 08/30/2019 10:19 AM FINDINGS: Tubes, catheters and devices: Battery pack in the left chest wall with lead extending cephalad towards the left neck. Lungs: Unremarkable. No consolidation. Pleural spaces: Unremarkable. No pleural effusion. No pneumothorax. Heart/Mediastinum: Unremarkable. No cardiomegaly. Bones/joints: There is a left lateral 3rd rib fracture. IMPRESSION: Left lateral 3rd rib fracture. Dictated and Authenticated by: Shiloh Baker MD. Ordering:SHAGUFTA Gruber MD
[2024-02-18] MEDS: Lidocaine 5% Patch 1 PATCH TP (11:38)
== END 2024-02-18 11:39 | disposition home or self-care (01) ==
PROVIDERS: Emergency Provider Emergency Medicine; PCP Family Medicine
DX: S22.32XA Fracture of one rib, left side, initial encounter for closed fracture (principal); R06.02 Shortness of breath; W19.XXXA Unspecified fall, initial encounter; M25.551 Pain in right hip
CPT/HCPCS: 36415; 80053; 87637; 93005; 99284; 71046; 73502; 83735; 84484; 85025; 93010

== ENCOUNTER → 2024-03-18 14:50 | Outpatient (BNVA) | payer MEDICARE, MEDICAID, SELFPAY | PROVIDERS: PCP Family Medicine; Visit Provider Psychiatry & Neurology Neurology | DX: F81.9 Developmental disorder of scholastic skills, unspecified (principal); G40.119 Localization-related (focal) (partial) symptomatic epilepsy and epileptic syndromes with simple partial seizures, intractable, without status epilepticus; G80.8 Other cerebral palsy; Q04.6 Congenital cerebral cysts | CPT/HCPCS: 95971; 99215 ==

== ENCOUNTER 2024-04-03 15:30 | Outpatient (CLI) | payer MEDICARE, MEDICAID, SELFPAY ==
--- NOTE | 2024-04-03 10:55 | DI.RAD_ITS ---
Exam(s) XR CLAVICLE LT EXAM: XR CLAVICLE LT INDICATION: F/U FRACTURE. COMPARISON: CR,XR XR SHOULDER LT COMPLETE 2+V from 12/24/2023 CR XR CLAVICLE LT from 02/07/2024 TECHNIQUE: 2D digital imaging was performed. Two views. FINDINGS: Stable alignment of fractures at the distal end of the clavicle and coracoid process. Continued call us formation. No new abnormalities. DATA REPOSITORY: RADIATION DOSE DELIVERED:
== END 2024-04-03 15:31 | disposition home or self-care (01) ==
LOC: DIORS 15:30
PROVIDERS: PCP Family Medicine; Visit Provider Student in an Organized Health Care Education/Training Program
DX: S42.002D Fracture of unspecified part of left clavicle, subsequent encounter for fracture with routine healing (principal); X58.XXXD Exposure to other specified factors, subsequent encounter
CPT/HCPCS: 99213; 73000

== ENCOUNTER 2024-05-29 03:38 | Outpatient (CLI) | payer MEDICARE, MEDICAID, SELFPAY ==
--- NOTE | 2024-05-29 | DI.RAD_ITS ---
Exam(s) XR CHEST 2V PA LATERAL EXAM: XR CHEST 2V PA LATERAL CLINICAL HISTORY: INSPIRATORY STRIDOR,R06.1 TECHNIQUE: 2D digital imaging was performed of the chest. Two images were obtained. PA and lateral views were obtained. COMPARISON: CR,XR XR CHEST 2V PA LATERAL from 02/18/2024 FINDINGS: MEDIASTINUM: Normal. HEART: Normal. PULMONARY VASCULATURE: Normal. LUNGS: Clear. PLEURAL SPACE: No pleural effusion or pneumothorax. BONE:Within normal limits for the patient's age. OTHER FINDINGS:There is again seen a battery pack along the left chest wall. IMPRESSION: No acute pulmonary findings. DATA REPOSITORY: RADIATION DOSE DELIVERED:
== END 2024-05-29 03:58 ==
LOC: NCHCN 03:38 → DI 07:40
PROVIDERS: PCP Family Medicine; Visit Provider Family Medicine
DX: R06.1 Stridor (principal)
CPT/HCPCS: 95971; 71046

== ENCOUNTER 2024-06-19 01:31 | Outpatient (CLI) | payer MEDICARE, MEDICAID, SELFPAY ==
--- NOTE | 2024-06-19 07:00 | DI.CT_ITS ---
Exam(s) CT NECK CHEST WO EXAM: CT NECK CHEST WO CLINICAL HISTORY: stridor x 1 month, normal flexible laryngoscopy,sob,r06.1,r06.02. TECHNIQUE: Imaging Protocol: Axial computed tomography images with coronal and sagittal reformatted images were created and reviewed. CONTRAST MATERIAL: Intravenous: Contrast Contrast volume:structured data in mlmL COMPARISON: CT CT HEAD CERVICAL SPINE WO from 08/30/[address] CHEST/ABD/PEL W from 08/30/[address] HEAD CERVICAL SPINE WO from 12/24/2023 CR XR CHEST 2V PA LATERAL from 05/29/2024 FINDINGS: Visualized intracranial structures: Within normal limits. Orbits and orbital soft tissues: Within normal limits. Visualized paranasal sinuses: Within normal limits. Pharynx : Within normal limits. Larynx: There is some thickening of the wall of the left piriformis sinus compared to the right. Th e left arytenoid cartilage is slightly more medially located compared to the right. This is of uncer tain if any clinical significance. Retropharyngeal space: Within normal limits. Parotids/submandibular: The right submandibular gland is smaller compared to the left submandibular gland. The right parotid gland also is decreased in size compared to the left parotid gland. Thyroid gland: Within normal limits. Lymphadenopathy: There is scattered lymph nodes seen along the level one to level three all measurin g less than 8 mm in short axis diameter which are physiologic in nature. Trachea: Within normal limits. Bones: Within normal limits for the patient's age. Carotids/Jugular: Within normal limits. Soft tissues: There is absence of the patient's distal right sternocleidomastoid muscle. Tracheobronchial tree: Patent where visualized. No bronchiectasis is present. No endobronchial lesio ns. No mucous plugging or bronchial wall thickening. Pulmonary parenchyma: No consolidation or dominant measurable mass. There are few scattered calcified granuloma present. There is a stable perifissural nodule adjacent to the left major fissure. No ne w pulmonary nodules are present. Mediastinum and Norma: No dominant adenopathy or fluid collection. There is mild thickening of the wal l of the distal esophagus. This may be due to underdistention, however, mass or esophagitis cannot b e excluded. Thyroid gland: Unremarkable. Pleura: No effusion or pneumothorax. Heart: The heart is not dilated. No coronary artery calcifications are seen. No pericardial effusion. Aorta: Thoracic aorta non-dilated. Upper abdomen: Unremarkable. Lymph nodes: Within normal limits. Tubes, Catheters, and Lines: There is a battery pack in the left anterior chest wall with a wire cour sing cephalad in the left neck. Soft tissues: Unremarkable. Bones:Within normal limits for the patient's age. There are old bilateral rib fracture deformities. There is an old compression deformities at T4, T5, T10 and L2. IMPRESSION: 1. No acute pulmonary process. 2. The trachea is unremarkable without evidence of an endobronchial lesion, mucous plugging or bronch ial wall thickening. No bronchiectasis is present. 3. Stable left perifissural nodule. No new pulmonary nodules. 4. Absence of the patient's distal right sternocleidomastoid muscle. Decreased size of the right paro tid and submandibular glands. 5. Mild thickening of the wall of the left piriform sinus with more medial location of the left aryte noid cartilage. This is of uncertain clinical significance. Please correlate with the patient's laryn goscopy and vocal cord function. RADIATION DOSE DELIVERED: 449.26mGy.cm Total DLP 449.26mGy.cm Total DLP DATA REPOSITORY: All CT scans at this facility are submitted to the National Radiology Data Registry (NRDR) Dose Index Registry (DIR) with the [employer] ([employer]). RADIATION OPTIMIZATION: All CT scans at this facility use at least one of these dose optimization te chniques: automated exposure control; mA and/or kV adjustment per patient size (includes targeted exa ms where dose is matched to clinical indication); or iterative reconstruction.
== END 2024-06-19 01:51 ==
LOC: DI 01:31
PROVIDERS: PCP Family Medicine; Visit Provider Registered Nurse Maternal Newborn
DX: R06.1 Stridor (principal); R06.02 Shortness of breath; R91.1 Solitary pulmonary nodule
CPT/HCPCS: 71271; 70490

== ENCOUNTER 2024-06-21 14:06 | Outpatient (CLI) | payer MEDICARE, MEDICAID, SELFPAY ==
--- NOTE | 2024-06-21 13:45 | DI.RAD_ITS ---
Exam(s) XR ELBOW RT COMPLETE EXAM: XR ELBOW RT COMPLETE CLINICAL HISTORY: Fall 10 days ago, eccymosis and decreased ROM, RT ELBOW PAIN, M25.521. TECHNIQUE: 2D digital imaging was performed of the left elbow. Three images were obtained. AP, lat eral and oblique views were obtained. COMPARISON: No exams were available for comparison FINDINGS: BONES: There is a comminuted fracture through the olecranon on with 2 mm distraction. No bony destru ctive lesion is seen. JOINTS: The elbow is normally aligned. There is a joint effusion. SOFT TISSUE: Normal. IMPRESSION: There is a comminuted fracture of the olecranon with an associated joint effusion. DATA REPOSITORY: RADIATION DOSE DELIVERED:
== END 2024-06-21 14:26 ==
LOC: DI 14:07
PROVIDERS: PCP Family Medicine; Visit Provider Physician Assistant
DX: S52.031A Displaced fracture of olecranon process with intraarticular extension of right ulna, initial encounter for closed fracture (principal); X58.XXXA Exposure to other specified factors, initial encounter
CPT/HCPCS: 73080

== ENCOUNTER → 2024-07-10 09:01 | Outpatient (BNVA) | payer MEDICARE, MEDICAID, SELFPAY | PROVIDERS: PCP Family Medicine; Visit Provider Psychiatry & Neurology Neurology | DX: G40.119 Localization-related (focal) (partial) symptomatic epilepsy and epileptic syndromes with simple partial seizures, intractable, without status epilepticus (principal); G80.8 Other cerebral palsy; Q04.6 Congenital cerebral cysts; F81.9 Developmental disorder of scholastic skills, unspecified; G47.33 Obstructive sleep apnea (adult) (pediatric) | CPT/HCPCS: 99214; 95970 ==

== ENCOUNTER 2024-08-01 01:06 | Outpatient (CLI) | payer MEDICARE, MEDICAID, SELFPAY ==
--- NOTE | 2024-08-01 | DI.DEXA_ITS ---
Exam(s) XR DEXA BONE DENSITY W/WO ESTEE EXAM: XR DEXA BONE DENSITY W/WO ESTEE CLINICAL HISTORY: M85.88 Other specified disorders of bone density and structure, other site TECHNIQUE: COMPARISON: CR XR DEXA BONE DENSITY W/WO ESTEE from 02/11/2022 FINDINGS: Lateral Spine Image: The lateral image was not performed as the patient was unable to tolerate the po sitioning. Left hip: Total T-Score: -2.2. This compares to -2.1 on the prior examination. Total Z-Score: -1.4 T- and Z-scores: The findings are consistent with osteopenia. Lumbar Spine: Total T-Score: -1.3. This compares to -0.8 on the prior examination. Total Z-Score: 0.0 T- and Z-scores: The findings are consistent with osteopenia. IMPRESSION: No evidence of osteoporosis in the left hip or lumbar spine.
== END 2024-08-01 01:26 ==
LOC: DI 01:06
PROVIDERS: PCP Family Medicine; Visit Provider Family Medicine
DX: M85.88 Other specified disorders of bone density and structure, other site (principal)
CPT/HCPCS: 77080

== ENCOUNTER → 2024-09-24 12:51 | Outpatient (BNVA) | payer MEDICARE, MEDICAID, SELFPAY | PROVIDERS: PCP Family Medicine; Referring Provider Family Medicine; Visit Provider Physician Assistant Surgical | DX: G47.33 Obstructive sleep apnea (adult) (pediatric) (principal); G81.91 Hemiplegia, unspecified affecting right dominant side; R06.2 Wheezing | CPT/HCPCS: 99215 ==

== ENCOUNTER 2024-10-07 02:45 | Outpatient (CLI) | payer MEDICARE, MEDICAID, SELFPAY ==
[2024-10-07] MEDS: Levalbuterol HFA 15 GM INH 4 PUFF IH (14:40)
[2024-10-07] MEDS: Inhaler, Assist Device 1 EACH MC (14:40)
--- NOTE | 2024-10-20 14:33 | W.PFT ---
Date of service: 10/07/24 Time of Service: 12:57 Pulmonary Function Test Result Indications: Wheezing Interpretation Spirometry: There is moderate airflow limitation. The flow volume loop showing possible inspiratory and expiratory blunting concerning for a fixed upper airway obstruction. Low MEP, normal MIP. Lung Volumes: Normal lunng volumes Airway Pressure: Increased airways resistance Impression Moderate airflow limitation with increased airways resistance. There is a normal MIP, relevance of a low MEP is unclear. The flow volume loop is somewhat concerning for a fixed upper airway obstruction: can consider imaging for furtehr assessment. Clinical Correlation therefore is recommended.
== END 2024-10-07 02:46 | disposition home or self-care (01) ==
LOC: RT 02:45
PROVIDERS: PCP Family Medicine; Visit Provider Student in an Organized Health Care Education/Training Program
DX: G81.91 Hemiplegia, unspecified affecting right dominant side (principal); R06.2 Wheezing
CPT/HCPCS: 94060; 94726

== ENCOUNTER → 2024-10-10 09:15 | Outpatient (BNVA) | payer MEDICARE, MEDICAID, SELFPAY | PROVIDERS: PCP Family Medicine; Referring Provider Family Medicine; Visit Provider Psychiatry & Neurology Neurology | DX: F81.9 Developmental disorder of scholastic skills, unspecified (principal); G40.119 Localization-related (focal) (partial) symptomatic epilepsy and epileptic syndromes with simple partial seizures, intractable, without status epilepticus; G80.8 Other cerebral palsy; Q04.6 Congenital cerebral cysts | CPT/HCPCS: 99214; 95970 ==